=== PATIENT | female | born 1955 ===

== ENCOUNTER 2023-09-13 19:13 | Outpatient (CLI) | payer SELFPAY | END 2023-09-13 23:59 | disposition EMS.NT | LOC: EMS 19:13 | DX: S00.81XA Abrasion of other part of head, initial encounter (principal); W01.190A Fall on same level from slipping, tripping and stumbling with subsequent striking against furniture, initial encounter; Y93.89 Activity, other specified; Y92.009 Unspecified place in unspecified non-institutional (private) residence as the place of occurrence of the external cause ==

== ENCOUNTER 2024-05-12 14:00 | Inpatient (IN) ==
--- NOTE | 2024-05-12 14:20 | ED Physician Documentation ---
PD HPI CHEST PAIN Stated complaint Stated Complaint: SOA Chief complaint Chief Complaint: Resp Additional information Additional information: Patient with history of throat cancer had major reconstructive surgery with [facility] last year presents emergency department via EMS for chest pain, shortness of breath, increased work of breathing. Patient was seen here 05/09 and was diagnosed with influenza A since going home she has been having worsening symptoms and worsening shortness of breath worsening cough. Patient was prescribed Zithromax, Tessalon Perles, prednisone at last ER visit with no improvement in symptoms. Upon arrival via EMS to her house she was satting at 90% she was given a DuoNeb and route to emergency department to help with her increased work of breathing. Currently satting on 94% on room air. Meds/Allgy Home Medications Ambulatory Orders Medication Instructions Recorded Confirmed albuterol sulfate 90 mcg/actuation 1 inh inhalation QID 03/16/24 05/12/24 aerosol inhaler (Ventolin HFA) aspirin 81 mg tablet,delayed 81 mg PO QDAY 03/16/24 05/12/24 release (Adult Low Dose Aspirin) citalopram 40 mg tablet (Celexa) 20 mg PO QDAY 03/16/24 05/12/24 clonazepam 0.5 mg tablet (Klonopin) 0.5 mg PO QDAY 03/16/24 05/12/24 epinephrine 0.3 mg/0.3 mL 0.3 mg IM Q10M PRN anaphylaxis 03/16/24 05/12/24 injection, auto-injector (EpiPen 2-Rickie) hydrocodone 5 mg-acetaminophen 325 1 tab PO Q8H PRN pain 03/16/24 05/12/24 mg tablet latanoprost 0.005 % eye drops 1 drp ophthalmic (eye) QDAY 03/16/24 05/12/24 levothyroxine 75 mcg tablet 75 mcg PO QDAY 03/16/24 05/12/24 (Synthroid) lidocaine HCl 4 % topical cream 1 applic topical BID 03/16/24 05/12/24 (Aspercreme (lidocaine HCl)) methocarbamol 500 mg tablet 500 mg PO QID 03/16/24 05/12/24 ondansetron HCl 4 mg tablet 4 mg PO Q8H 03/16/24 05/12/24 polyethylene glycol 3350 17 17 g PO QDAY 03/16/24 05/12/24 gram/dose oral powder (Miralax) timolol 0.5 % eye drops 1 drp ophthalmic (eye) QDAY 03/16/24 05/12/24 azithromycin 250 mg tablet See Rx Instructions PO .COMPLEX #6 05/09/24 05/12/24 (Zithromax Z-Rickie) tabs benzonatate 200 mg capsule 200 mg PO TID PRN cough #18 caps 05/09/24 05/12/24 oseltamivir 75 mg capsule (Tamiflu) 75 mg PO BID 5 days #10 caps 05/09/24 05/12/24 prednisone 20 mg tablet 60 mg (3 x 20 mg) PO DAILY 3 days 05/09/24 05/12/24 #9 tabs Allergies Allergies Allergy/AdvReac Type Severity Reaction Status Date / Time iodine Allergy Hives Verified 05/12/24 14:41 tree nut Allergy Unknown Verified 05/12/24 14:41 PFSH Active Problems All Active Problems (Updated 05/12/24 @ 18:24 by Angie Flanagan) Dysphagia (Acute) Community acquired pneumonia (Acute) Respiratory failure with hypoxia (Acute) H/O colectomy (Acute) Pneumonia (Acute) Hypoxia (Acute) Asthma exacerbation (Acute) Bronchitis (Acute) Influenza A (Acute) Right foot pain (Acute) Right ankle pain (Acute) Social History Social History Smoking Status: Never smoker Relationship: Level: Independent Do you feel safe in your home environment?: Yes Suffered physical, verbal, emotional, or financial abuse?: No Substance Use: cannabis (any form) Exam Constitutional abnormal general appearance (disheveled), (chronically ill), (appears older than stated age) and (frail appearing), no apparent distress, abnormal body habitus (thin), no limitations and alert HENMT normocephalic Eyes PERRL Neck/C-Spine visual inspection normal and trachea midline Chest inspection of chest normal and palpation of chest normal Respiratory breath sounds equal bilaterally, abnormal respiratory effort, auscultation abnormal (diminished breath sound) and wheezing noted (scattered wheezes) ronchi Cardiovascular normal heart rate noted and regular rhythm noted Gastrointestinal abdomen normal to inspection Genitourinary no CVA tenderness Extremities normal to inspection and normal to palpation Skin skin color normal and no rash Results Vitals Vitals: Vital Signs - 24 hr 05/12/24 14:13 05/12/24 15:02 05/12/24 15:45 Temperature 36.6 C Temperature Source Temporal Artery Scan Pulse Rate 65 Respiratory Rate 22 Blood Pressure 154/92 H O2 Saturation 95 O2 Source Room air Pain Intensity 3 7 2 05/12/24 16:16 Temperature Temperature Source Pulse Rate 66 Respiratory Rate 14 Blood Pressure 145/90 H O2 Saturation 95 O2 Source Room air Pain Intensity 3 Oxygen O2 Source Room air EKG (time done) 1424: EKG releavant findings:: EKG personally interpreted by author of this note. Relevant findings are: Rate: Rate (enter#) (64) Rhythm: NSR [place]: Normal Intervals: Normal [place] QRS: QRS normal and Other (L atrial enlargement) Ischemia: Normal ST segments Computer interpretation: Agree with computer Labs Labs: Laboratory Tests 05/12/24 14:25 WBC 8.1 RBC 3.83 L Hgb 11.5 L Hct 34.9 L MCV 91.1 MCH 30.0 MCHC 33.0 RDW 13.9 Plt Count 380 MPV 9.0 Neut # (Auto) 5.6 Lymph # (Auto) 1.7 [place] # (Auto) 0.7 Eos # (Auto) 0.0 Baso # (Auto) 0.0 Absolute Nucleated RBC 0.00 Nucleated RBC % 0.0 Sodium 139 Potassium 3.5 Chloride 106 Carbon Dioxide 26 Anion Gap 7.0 BUN 11 Creatinine 0.6 Estimated GFR (MDRD) 99 Glucose 98 Calcium 8.5 Total Bilirubin 0.4 AST 35 ALT 33 Alkaline Phosphatase 44 Troponin I High Sens 3.7 Total Protein 6.1 L Albumin 3.8 Globulin 2.3 Albumin/Globulin Ratio 1.7 Rads (name of study) CT angio chest: Relevant Findings:: Final report received Interpretation: IMPRESSION: No pulmonary embolus. Scattered ground glass opacities can be seen, which are worst at the lung bases, which are consistent with the given clinical history of viral infiltrate. At both lung apices, there is consolidation with bronchiectasis. This has the appearance of a chronic process. Please relate with known patient history. PD Medical Decision Making ED course Complexity details: reviewed results, re-evaluated patient and d/w systems consultant (FIOR Chairez hospitalist) ED course: 68-year-old female with comorbidities of throat cancer requiring surgery at [facility] about a year ago. She comes in with increased shortness of breath and increased work of breathing with coughing. Bilateral lungs are quite rhonchorous. She is satting 90% on room air she received a DuoNeb treatment and route she is just recently prescribed azithromycin and steroids with little to no improvement of symptoms. CT angio chest was complete for further evaluation to rule out the possibility of a PE given her cancer history and recent immobilization due to influenza A and hypoxia she has no pulmonary embolus she appears to have scattered ground glass opacities worse at the lung bases. At both lung apices there is consolidation with bronchiectasis could be chronic finding. Labs are complete for further evaluation and she has no leukocytosis no significant anemia no electrolyte abnormalities or findings. We attempted to ambulate patient and she desatted to 88/87% with ambulation on room air. Because of these findings patient would benefit from hospitalization overnight for further evaluation workup and pulmonary toileting. She was given a gram of Rocephin here in the emergency department to help with possible influenza A pneumonia given that she has had the symptoms now for about a week and a half. At this point in time patient is agreeable to admit I reach out to on-call hospitalist, FIOR Chairez, who has graciously agreed to admit the patient Discharge Plan Discharge Patient Disposition: ED Place in Observation Condition: Stable Clinical Impression: Hypoxia, Pneumonia, Influenza A Interventions: ED Admission Assessment Last Done: 05/12/24 18:25
[2024-05-12] MEDS: DEXAMETHASONE 10 MG/ML VIAL PO STA (14:35)
[2024-05-12] MEDS: ONDANSETRON 4 MG/2 ML VIAL IVP STA (14:35)
[2024-05-12] MEDS: diphenhydrAMINE 25 MG CAPSULE PO STA (14:35)
[2024-05-12] MEDS: CHERRY SYRUP 10 ML UDC PO ONE ×2 (14:35→18:35)
[2024-05-12 14:40] LABS: BASOPHILS % (AUTO) 0.1 %; EOSINOPHILS % (AUTO) 0.1 %; HCT - HEMATOCRIT 34.9 % (37.0-47.0); HGB - HEMOGLOBIN 11.5 g/dL (12.0-16.0); LYMPHOCYTES # (AUTO) 1.7 10^3/uL (1.5-3.5); MEAN CORPUSCULAR VOLUME 91.1 fL (81.0-99.0); MONOCYTES # (AUTO) 0.7 10^3/uL (0.0-1.0); MONOCYTES % (AUTO) 9.1 %; NEUTROPHILS # (AUTO) 5.6 10^3/uL (1.5-6.6); NEUTROPHILS % (AUTO) 69.5 %; PLT - PLATELET COUNT 380 10^3/uL (130-450); RED BLOOD COUNT 3.83 10^6/uL (4.20-5.40); RED CELL DISTRIBUTION WIDTH 13.9 % (12.0-15.0); WHITE BLOOD COUNT 8.1 x10^3/uL (4.8-10.8)
[2024-05-12 14:49] LABS: ALBUMIN 3.8 g/dL (3.2-5.5); ALBUMIN/GLOBULIN RATIO 1.7 (1.0-2.2); BILIRUBIN,TOTAL 0.4 mg/dL (0.2-1.0); CALCIUM 8.5 mg/dL (8.5-10.3); CREATININE 0.6 mg/dL (0.6-1.3); POTASSIUM 3.5 mmol/L (3.5-4.5); TOTAL PROTEIN 6.1 g/dL (6.4-8.9)
[2024-05-12] MEDS: KETOROLAC 30 MG/ML VIAL IVP STA (15:02)
[2024-05-12] MEDS ORDERED: iohexoL-300 100 ML VIAL ONE (15:19)
--- NOTE | 2024-05-12 16:23 | CT Report ---
PROCEDURE: CT Angio Chest INDICATIONS: hypoxic, hx cancer, flu A, CP CONTRAST: omni 300, 80 TECHNIQUE: After the administration of intravenous contrast, 2 mm axial images were acquired from the pulmonary apices to the posterior costophrenic angles during the arterial phase. In addition, 1 mm lung kernel and 5 mm soft tissue kernel reconstructions were performed. 3-dimensional coronal oblique maximum int ensity projection (MIP) reformats, 8 mm axial MIP, and 5 mm coronal and sagittal MPR reformats were t hen performed through the thorax. For radiation dose reduction, the following was used: automated exp osure control, adjustment of mA and/or kV according to patient size. The patient was premedicated for this study. No immediate contrast reaction was experienced. COMPARISON: Correlation is made with chest radiograph, 05/09/2024 FINDINGS: Image quality: There is streak artifact seen through the level of the shoulders. Large vessels: No filling defects within the opacified pulmonary arteries, accounting for motion and contrast timing. No evidence of acute aortic syndrome or aortic aneurysm. Lungs and pleura: At both lung apices, consolidation with bronchiectasis can be seen. Scattered groun d glass opacities can be seen throughout the lungs, although worst at the lung bases. No pneumothorax or pleural effusions can be seen. Mediastinum: Heart size is normal. No pericardial effusion. No large vessel abnormality. No mediastin al adenopathy by size criteria. Chest wall and lower neck: Thyroid is unremarkable. No axillary or supraclavicular adenopathy by size . Bones: No aggressive osseous abnormality. Sternotomy changes are noted. Upper Abdomen: Left upper quadrant postoperative clips are seen. Diverticulosis can be seen, without mor findings of active diverticulitis. The visualized portions of the upper abdominal structures ar e otherwise within normal limits. IMPRESSION: No pulmonary embolus. Scattered ground glass opacities can be seen, which are worst at the lung bases, which are consistent with the given clinical history of viral infiltrate. At both lung apices, there is consolidation with bronchiectasis. This has the appearance of a chronic process. Please relate with known patient history. Additional findings: Sternotomy Left upper quadrant clips Diverticulosis can be seen, without mor findings of active diverticulitis. Reviewed by: Jonny Horvath MD on 05/12/2024 3:22 PM [facility] Approved by: Jonny Horvath MD on 05/12/2024 3:22 PM [facility] Station ID: [id number]
[2024-05-12] MEDS: iohexoL-300 100 ML VIAL IVP ONE (17:04)
[2024-05-12] MEDS: cefTRIAXone 1 GM in SODIUM CHLORIDE 0.9% MINIBAG 100 ML IV STA (17:30)
[2024-05-12] MEDS ORDERED: cefTRIAXone 1 GM VIAL ONE (17:33)
[2024-05-12] MEDS ORDERED: IBUPROFEN 600 MG TABLET PO PRN (18:06)
[2024-05-12] MEDS ORDERED: SODIUM CHLORIDE FLUSH 0.9% 10 ML SYRINGE IVP PRN (18:06)
--- NOTE | 2024-05-12 18:10 | HISTORY & PHYSICAL EXAMINATION ---
Chief Complaint Chief Complaint Chief Complaint: Shortness of breath History of Present Illness History Obtained From Records Reviewed: emergency department History of Present Illness HPI Comment/Other: Patient is a 68 year female with significant history of MEN 2a, throat cancer, thyroidectomy, punctured esophagus, neck reconstruction, colectomy that presents for shortness of breath. Patient reports malaise, lack of appetite, nausea, body aches, headaches, dysphagia, cough, shortness of breath with exertion for one week. Denies diarrhea, fever, chills, abdominal pain. She went to the ER last week and was prescribed prednisone and azithromycin with no improvement. Due to her medical history, she requires thickened liquids (consistency: mildly thin) , her dysphagia has been worse for the past week and she has been coughing up liquids. Patient denies smoking history, denies daily drinking, she lives with her boyfriend. Her PCP is Dr. An at [facility] Home Medications Ambulatory Orders Medication Instructions Recorded Confirmed albuterol sulfate 90 mcg/actuation 1 inh inhalation QID 03/16/24 05/12/24 aerosol inhaler (Ventolin HFA) aspirin 81 mg tablet,delayed 81 mg PO QDAY 03/16/24 05/12/24 release (Adult Low Dose Aspirin) citalopram 40 mg tablet (Celexa) 20 mg PO QDAY 03/16/24 05/12/24 clonazepam 0.5 mg tablet (Klonopin) 0.5 mg PO QDAY 03/16/24 05/12/24 epinephrine 0.3 mg/0.3 mL 0.3 mg IM Q10M PRN anaphylaxis 03/16/24 05/12/24 injection, auto-injector (EpiPen 2-Rickie) hydrocodone 5 mg-acetaminophen 325 1 tab PO Q8H PRN pain 03/16/24 05/12/24 mg tablet latanoprost 0.005 % eye drops 1 drp ophthalmic (eye) QDAY 03/16/24 05/12/24 levothyroxine 75 mcg tablet 75 mcg PO QDAY 03/16/24 05/12/24 (Synthroid) lidocaine HCl 4 % topical cream 1 applic topical BID 03/16/24 05/12/24 (Aspercreme (lidocaine HCl)) methocarbamol 500 mg tablet 500 mg PO QID 12/27/24 02/22/25 ondansetron HCl 4 mg tablet 4 mg PO Q8H 03/16/24 05/12/24 polyethylene glycol 3350 17 17 g PO QDAY 03/16/24 05/12/24 gram/dose oral powder (Miralax) timolol 0.5 % eye drops 1 drp ophthalmic (eye) QDAY 03/16/24 05/12/24 azithromycin 250 mg tablet See Rx Instructions PO .COMPLEX #6 05/09/24 05/12/24 (Zithromax Z-Rickie) tabs benzonatate 200 mg capsule 200 mg PO TID PRN cough #18 caps 05/09/24 05/12/24 oseltamivir 75 mg capsule (Tamiflu) 75 mg PO BID 5 days #10 caps 05/09/24 05/12/24 prednisone 20 mg tablet 60 mg (3 x 20 mg) PO DAILY 3 days 05/09/24 05/12/24 #9 tabs Allergies Allergies Allergy/AdvReac Type Severity Reaction Status Date / Time iodine Allergy Hives Verified 05/12/24 14:41 tree nut Allergy Unknown Verified 05/12/24 14:41 PFSH Active Problems All Active Problems (Updated 05/12/24 @ 18:24 by Angie Flanagan) Dysphagia (Acute) Community acquired pneumonia (Acute) Respiratory failure with hypoxia (Acute) H/O colectomy (Acute) Pneumonia (Acute) Hypoxia (Acute) Asthma exacerbation (Acute) Bronchitis (Acute) Influenza A (Acute) Right foot pain (Acute) Right ankle pain (Acute) Social History Social History Smoking Status: Never smoker Relationship: Level: Independent Do you feel safe in your home environment?: Yes Suffered physical, verbal, emotional, or financial abuse?: No Substance Use: cannabis (any form) POLST Patient has POLST: Yes POLST Status: Miguel Arrieta is contact Review of Systems Constitutional Reports: Fatigue, Malaise, Weakness and Poor appetite; Denies: Fever or Chills Ears, nose, mouth, and throat Reports: Difficulty swallowing Cardiovascular Reports: shortness of breath with exertion; Denies: chest pain, palpitations or edema Respiratory Reports: Shortness of breath, Cough and SOB with exertion Gastrointestinal Reports: Nausea, Vomiting and Difficulty swallowing; Denies: Abdominal pain or Diarrhea Musculoskeletal Reports: Muscle aches Neurological Reports: Headache and General weakness Endocrine Reports: Fatigue Exam Constitutional abnormal body habitus (cachectic) On room air HENMT normocephalic, head/scalp atraumatic and oral mucous membranes abnormal (dry) Eyes PERRL and conjunctivae normal Neck/C-Spine visual inspection normal Chest inspection of chest normal and palpation of chest normal Respiratory breath sounds equal bilaterally, normal respiratory effort, clear to auscultation bilaterally, no wheezes and no rales Cardiovascular normal heart rate noted Gastrointestinal abdomen normal to inspection, abdomen soft to palpation and nontender to palpation Extremities normal to inspection Neurology seed analyst II-XII intact, no movement abnormality noted, no focal motor deficit noted and no sensory deficits noted Psychiatry oriented x3, thought process normal, cooperative and affect normal Skin skin color abnormal (pale) Conclusion/Plan Problem List (1) Respiratory failure with hypoxia: Plan: Patient short of breath with exertion for the past week despite use of prednisone and albuterol inhaler, saturation 87% on room air when walking. Patient does not require oxygen right now, will continue to monitor oxygen. Likely secondary to flu A or possible community acquired bacterial pneumonia. Chest x-ray indicated ground glass infiltrates and bronchiectasis. Albuterol and atrovent ordered q4 PRN. (2) Influenza A: Plan: Patient reports shortness of breath, nausea, myalgias, malaise, lack of appetite, cough for past week. Patient tested flu a positive on 05/09/24 and was prescribed tamiflu, tessalon pearls, azithromycin, and prednisone. These have not improved symptoms. Will continue to give fluids, dexamethasone 6mg daily, tylenol, and zofran PRN. (3) Community acquired pneumonia: Plan: Patient has shortness of breath and cough. Chest x-ray indicates ground glass opacities and bronchiectasis. WBCs within normal limits. Tested flu a positive 3 days ago. Patient is being empircally treated with azithromycin and rocephin. Ordered dexamethasone, fluids, tylenol, zofran. Recheck CBC and BMP tomorrow. (4) Dysphagia: Plan: Patient has dysphagia associated with history of MEN IIa and neck reconstruction. She specifically has dysphagia to liquids and requires nectar thick liquids. Dysphagia has worsened with cough this past week. Patient placed on minced and moist diet, mildly thick liquids. Plan Patient is a full code, her boyfriend Miguel Arrieta is her decision maker in case of adverse event Lab Results Lab results reviewed: Yes 05/12/24 14:25 05/12/24 14:25 Diagnostic Imaging Results Diagnostic Imaging Results: positive Final report reviewed
[2024-05-12] MEDS: clonazePAM 0.5 MG TABLET PO STA (18:39)
[2024-05-12] MEDS: CITALOPRAM HYDROBROMIDE 20 MG TABLET PO SCH (18:39)
[2024-05-12] MEDS: HYDROcod/ACETAM 5/325 MG TABLET PO PRN (18:53)
[2024-05-12] MEDS: IPRATROPIUM/ALBUTEROL 3 ML NEB INH PRN (19:27)
[2024-05-12] MEDS: LATANOPROST 0.005% OPHTH DROPS EACHEYE SCH (20:39)
[2024-05-12] MEDS: HEPARIN 5,000 UNIT/ML VIAL SUBQ SCH (20:39)
[2024-05-12] MEDS: guaiFENesin/CODEINE 5 ML UDC PO PRN (22:13)
[2024-05-12] MEDS: FLUTICASONE NASAL SPRAY NAS SCH (22:13)
[2024-05-13] MEDS: SODIUM CHLORIDE FLUSH 0.9% 10 ML SYRINGE IVP SCH (00:17)
[2024-05-13] MEDS: clonazePAM 0.5 MG TABLET PO PRN (05:03)
[2024-05-13 05:40] LABS: BASOPHILS % (AUTO) 0.1 %; EOSINOPHILS % (AUTO) 0.1 %; HCT - HEMATOCRIT 37.7 % (37.0-47.0); HGB - HEMOGLOBIN 12.5 g/dL (12.0-16.0); LYMPHOCYTES % (AUTO) 11.3 %; MEAN CORPUSCULAR HEMOGLOBIN 29.8 pg (27.0-31.0); MEAN CORPUSCULAR HGB CONC 33.2 g/dL (32.0-36.0); MEAN CORPUSCULAR VOLUME 89.8 fL (81.0-99.0); MEAN PLATELET VOLUME 8.8 fL (7.9-10.8); MONOCYTES # (AUTO) 0.5 10^3/uL (0.0-1.0); MONOCYTES % (AUTO) 5.2 %; NEUTROPHILS # (AUTO) 7.2 10^3/uL (1.5-6.6); NEUTROPHILS % (AUTO) 83.1 %; PLT - PLATELET COUNT 460 10^3/uL (130-450); RED CELL DISTRIBUTION WIDTH 13.6 % (12.0-15.0); WHITE BLOOD COUNT 8.7 x10^3/uL (4.8-10.8)
[2024-05-13 05:57] LABS: CALCIUM 8.9 mg/dL (8.5-10.3); CREATININE 0.6 mg/dL (0.6-1.3); POTASSIUM 3.5 mmol/L (3.5-4.5)
[2024-05-13] MEDS: LEVOTHYROXINE 75 MCG TABLET PO SCH (06:18)
[2024-05-13] MEDS ORDERED: LEVOTHYROXINE 75 MCG TABLET PO SCH (07:00)
[2024-05-13] MEDS: hydrALAZINE INJ 20 MG/ML VIAL IVP PRN (07:43)
[2024-05-13] MEDS: ASPIRIN CHEW 81 MG TABLET PO SCH (08:35)
[2024-05-13] MEDS: cefTRIAXone 1 GM VIAL IVP SCH (08:37)
[2024-05-13] MEDS: AZITHROMYCIN INJ 500 MG in SODIUM CHLORIDE 0.9% 250 ML IV SCH (08:38)
[2024-05-13] MEDS: polyethylene glycoL 3350 17 GM PACKET PO SCH (08:51)
[2024-05-13] MEDS: SENNA 8.6 MG TABLET PO SCH (08:52)
[2024-05-13] MEDS: DOCUSATE SODIUM 250 MG CAPSULE PO SCH (08:52)
[2024-05-13] MEDS: DEXAMETHASONE 10 MG/ML VIAL PO SCH (08:55)
[2024-05-13] MEDS: dexAMETHasone 4 MG TABLET PO SCH (08:57)
[2024-05-13] MEDS: ONDANSETRON ODT 4 MG TABLET TL PRN (09:22)
[2024-05-13] MEDS: TIMOLOL 0.5% OPHTH DROPS EACHEYE SCH (09:23)
[2024-05-13] MEDS: LORazepam 1 MG TABLET PO SCH (09:41)
--- NOTE | 2024-05-13 12:13 | Discharge Summary ---
"Discharge Summary Admit Date: 05/12/24 Discharge Date: 05/13/24 Discharging Provider: Lisa Silvestre PA-C Primary Care Provider: Dr. An Code Status: Attempt Resuscitation DIAGNOSES Discharge Diagnoses with Status of Each Condition: (1) Respiratory failure with hypoxia - resolved (2) Influenza A - patient sx improved, stable (3) Community acquired pneumonia - sx improved, stable (4) Dysphagia - chronic, stable HPI History of Present Illness: Patient is a 68 year female with significant history of MEN 2a, throat cancer, thyroidectomy, punctured esophagus, neck reconstruction, colectomy that presents for shortness of breath. Patient reports malaise, lack of appetite, nausea, body aches, headaches, dysphagia, cough, shortness of breath with exertion for one week. Denies diarrhea, fever, chills, abdominal pain. She went to the ER last week and was prescribed prednisone and azithromycin with no improvement. Due to her medical history, she requires thickened liquids (consistency: mildly thin) , her dysphagia has been worse for the past week and she has been coughing up liquids. Patient denies smoking history, denies daily drinking, she lives with her boyfriend. Her PCP is Dr. An at [facility] | PROCEDURES Consultations: None Procedures: Chest/thorax CTA - Scattered ground glass opacities, at apices consolidation with bronchiectasis HOSPITAL COURSE Hospital Course: Patient is a 68 year old female s/p neck reconstruction due to esophageal perforation during thyroidectomy that presented to ER for hypoxic respiratory failure secondary to flu A and community acquired pneumonia. #Respiratory failure with hypoxia: -Patient tested flu A positive 05/09/24 -prescribed prednisone, azithromycin, prednisone, tamiflu, tessalon by ER 05/09/24 -admitted 05/12/24 due to respiratory failure -CT indicated ground glass opacities, bronchiectasis with consolidation -given rocephin course inpatient -patient now 100% O2 on room air while walking -received duoneb treatment by RT -discharging on prednisone, augmentin #Dysphagia: -worsened with flu a, now back to baseline -managed by PCP #Seborrheic dermatitis -suspected based on scalp presentation and pruritis rx'ed ketoconazole Recommended patient mix ketoconazole and t-gel shampoo and use 3x per week. use clobetasol solution on problem areas of scalp after shower for one week, stop for one week, restart ALLERGIES Allergies Allergy/AdvReac Type Severity Reaction Status Date / Time iodine Allergy Hives Verified 05/12/24 14:41 tree nut Allergy Unknown Verified 05/12/24 14:41 MEDICATIONS Ambulatory Orders Medication Instructions Recorded Confirmed albuterol sulfate 90 mcg/actuation 1 inh inhalation QID 03/16/24 05/12/24 aerosol inhaler (Ventolin HFA) aspirin 81 mg tablet,delayed 81 mg PO QDAY 03/16/24 05/12/24 release (Adult Low Dose Aspirin) citalopram 40 mg tablet (Celexa) 20 mg PO QDAY 03/16/24 05/12/24 clonazepam 0.5 mg tablet (Klonopin) 0.5 mg PO QDAY 03/16/24 05/12/24 epinephrine 0.3 mg/0.3 mL 0.3 mg IM Q10M PRN anaphylaxis 03/16/24 05/12/24 injection, auto-injector (EpiPen 2-Rickie) hydrocodone 5 mg-acetaminophen 325 1 tab PO Q8H PRN pain 03/16/24 05/12/24 mg tablet latanoprost 0.005 % eye drops 1 drp ophthalmic (eye) QDAY 03/16/24 05/12/24 levothyroxine 75 mcg tablet 75 mcg PO QDAY 03/16/24 05/12/24 (Synthroid) timolol 0.5 % eye drops 1 drp ophthalmic (eye) QDAY 03/16/24 05/13/24 oseltamivir 75 mg capsule (Tamiflu) 75 mg PO BID 5 days #10 caps 05/09/24 05/12/24 amoxicillin 875 mg-potassium 1 tab PO BID #8 tabs 05/13/24 clavulanate 125 mg tablet codeine 10 mg-guaifenesin 100 mg/5 5 ml PO Q6HR PRN Cough #120 mL 05/13/24 mL oral liquid dexamethasone 2 mg tablet 6 mg (3 x 2 mg) PO DAILY #12 tabs 05/13/24 PHYSICAL EXAM AT DISCHARGE General Appearance: positive No acute distress, Alert and Anxious Eyes Bilateral: positive Normal inspection, PERRL and Conjunctivae nml Neck: positive Nml inspection Respiratory: positive Chest non-tender, No respiratory distress and Breath sounds nml; negative Wheezes, Rales or Rhonchi Cardiovascular: positive Regular rate & rhythm, No murmur and No gallop Skin: positive Color nml, Warm and Dry Extremities: positive Non-tender Neurologic/Psychiatric: positive Oriented x3 and CN's nml (2-12) LABS 05/13/24 05:30 05/13/24 05:30 DIAGNOSTIC IMAGING Diagnostic Imaging Results: Final report reviewed SEPSIS Current Stage of Sepsis: Ruled out Discharge Plan Discharge Patient Disposition: 06 Home Health Service Condition: Stable Prescriptions: New amoxicillin-pot clavulanate 875-125 mg tablet 1 tab PO BID Qty: 8 0RF dexamethasone 2 mg tablet 6 mg PO DAILY Qty: 12 0RF codeine-guaifenesin 10-100 mg/5 mL Liquid 5 ml PO Q6HR PRN (Reason: Cough) Qty: 120 0RF clobetasol 0.05 % solution 1 applic topical BID 7 Days Qty: 50 0RF Continued levothyroxine [Synthroid] 75 mcg tablet 75 mcg PO QDAY citalopram [Celexa] 40 mg tablet 20 mg PO QDAY clonazepam [Klonopin] 0.5 mg tablet 0.5 mg PO QDAY aspirin [Adult Low Dose Aspirin] 81 mg tablet,delayed release (DR/EC) 81 mg PO QDAY hydrocodone-acetaminophen 5-325 mg tablet 1 tab PO Q8H PRN (Reason: pain) epinephrine [EpiPen 2-Rickie] 0.3 mg/0.3 mL auto-injector 0.3 mg IM Q10M PRN (Reason: anaphylaxis) Rx Instructions: for 2 doses latanoprost 0.005 % drops 1 drp ophthalmic (eye) QDAY timolol 0.5 % drops 1 drp ophthalmic (eye) QDAY albuterol sulfate [Ventolin HFA] 90 mcg/actuation HFA aerosol inhaler 1 inh inhalation QID Discontinued oseltamivir [Tamiflu] 75 mg capsule 75 mg PO BID 5 Days Qty: 10 0RF Diet: Regular Health Concerns: \\you are a 68-year-old female with a past medical history of asthma who got an influenza A infection. You were trying to do well at home and follow instructions following your emergency department visit but it seems that you got sicker and had to return to the emergency department. At that time we noted that your oxygen was low when you are walking. Your oxygen was fine at rest. Because your oxygen requirements are improved after being on IV antibiotics and steroids overnight, you no longer require hospitalization. You are still weak and you are still tired. You need to go home and rest. I have sent in several new medications 1 is Augmentin that is an antibiotic that you can start tomorrow. You have gotten enough antibiotic coverage for the remainder of today. You do not need to finish your Tamiflu as you have had enough of that. You have also had enough azithromycin and do not need any more of that. I am sending you home on additional days of dexamethasone. This is to relieve the inflammation in your lungs from the infection. I am also sending you home with a cough suppressant. I would recommend that you mainly take this at night so that you can rest. With regards to how to take the dexamethasone, I recommend that you take this in the morning with food. Taking it in the afternoon or evening can cause you to be awake at night. With regards to the irritation of your scalp, I have several recommendations. You need to wash with medicated shampoo at least twice a week. I recommend [id number] solution of the ketoconazole shampoo that your radiology physician assistant has previously prescribed mixed with either T-Gel or T-yasmany shampoo. Both of these help inhibit the rapids turnover of skin cells that you have which is causing the dermatitis and dandruff. Also to the itchy scaly spots apply the clobetasol solution twice a day. You should use this for 1 week on 1 week off. Hopefully this will help and you will stop being so uncomfortable. Care Plan Goals: Rest, drink plenty of fluids and recover from this infection. It will take you several weeks We are sending home health for home health aide and physical therapy. Print Language: Haitian Stand Alone Forms: PCP List"
--- NOTE | 2024-05-13 12:15 | PHARMACY PROGRESS NOTE ---
Best Possible Medication History Admit Date and Time: 05/12/24 1737 Home Medications Medication Instructions Recorded Confirmed Type albuterol sulfate 90 mcg/actuation 1 inh inhalation QID 03/16/24 05/12/24 History aerosol inhaler (Ventolin HFA) aspirin 81 mg tablet,delayed 81 mg PO QDAY 03/16/24 05/12/24 History release (Adult Low Dose Aspirin) citalopram 40 mg tablet (Celexa) 20 mg PO QDAY 03/16/24 05/12/24 History clonazepam 0.5 mg tablet (Klonopin) 0.5 mg PO QDAY 03/16/24 05/12/24 History epinephrine 0.3 mg/0.3 mL 0.3 mg IM Q10M PRN anaphylaxis 03/16/24 05/12/24 History injection, auto-injector (EpiPen 2-Rickie) hydrocodone 5 mg-acetaminophen 325 1 tab PO Q8H PRN pain 03/16/24 05/12/24 History mg tablet latanoprost 0.005 % eye drops 1 drp ophthalmic (eye) QDAY 03/16/24 05/12/24 History levothyroxine 75 mcg tablet 75 mcg PO QDAY 03/16/24 05/12/24 History (Synthroid) timolol 0.5 % eye drops 1 drp ophthalmic (eye) QDAY 03/16/24 05/13/24 History oseltamivir 75 mg capsule (Tamiflu) 75 mg PO BID 5 days #10 caps 05/09/24 05/12/24 Rx Processed by: Pharmacy Medications reviewed in ED?: No Medication History completed: Yes Patient Interview: Completed Secondary Source(s): Insurance records [facility] Statement: RN interview with patient. [place] insurance records reviewed with T. As the person ultimately responsible for medication therapy, providers are able to order a medication from an existing home medication list in [facility] via the "Reconcile Routine" prior to Confirmation of that medication by student support advisor. Such practice is discouraged except when the physician, in their clinical judgment, deems that a medical need exists for a medication without regard to previous use.
[2024-05-13] MEDS: ACETAMINOPHEN 325 MG TABLET PO PRN (13:37)
[2024-05-13] MEDS: polyethylene glycoL 3350 17 GM PACKET PO PRN (17:14)
--- NOTE | 2024-05-13 17:23 | PROVIDER PROGRESS NOTE ---
Subjective Prog Note Date Prog Note Date: 05/13/24 Subjective Subjective: Elevated blood pressures overnight. When I came in to see the patient this morning I checked her blood pressure and it was 161/86 with a heart rate of 87. She continues to feel weak. She does not have increasing oxygen requirements overnight. Current Medications Current Medications Current Medications: Current Medications Generic Name Dose Route Start Last Admin Trade Name Rosemarie PRN Reason Stop Dose Admin Acetaminophen 650 mg 05/12/24 18:06 05/13/24 13:37 Acetaminophen 325 Mg Tablet PO 650 mg Q4HR PRN Administration Pain 1 to 4, or Fever Hydrocodone Bitart/Acetaminophen 1 tab 05/12/24 18:21 05/13/24 16:49 Hydrocod/Acetam 5/325 Mg Tablet PO 1 tab Q4HR PRN Administration Moderate Pain (Level 4-6) Albuterol/Ipratropium 3 ml 05/12/24 18:21 05/12/24 19:27 Ipratropium/Albuterol 3 Ml Neb INH 3 ml RTQID PRN Administration Shortness of Air/Wheezing Aspirin 81 mg 05/13/24 09:00 05/13/24 08:35 Aspirin Chew 81 Mg Tablet PO 81 mg DAILY VINICIO Administration Ceftriaxone Sodium 1 gm 05/13/24 09:00 05/13/24 08:37 Ceftriaxone 1 Gm Vial IVP 05/16/24 09:01 1 gm DAILY VINICIO Administration Citalopram Hydrobromide 20 mg 05/12/24 18:06 05/13/24 08:34 Citalopram Hydrobromide 20 Mg Tablet PO 20 mg DAILY VINICIO Administration Clonazepam 0.5 mg 05/12/24 18:21 05/13/24 05:04 Clonazepam 0.5 Mg Tablet PO 0.5 mg BID PRN Administration Anxiety Dexamethasone 6 mg 05/14/24 09:00 Dexamethasone 4 Mg Tablet PO 05/17/24 09:01 DAILY VINICIO Docusate Sodium 250 - 500 mg 05/13/24 09:00 05/13/24 08:52 Docusate Sodium 250 Mg Capsule PO 250 mg DAILY VINICIO Administration Fluticasone Propionate 1 sprays 05/12/24 21:55 05/13/24 08:33 Fluticasone Nasal [place] ZAC 1 spray DAILY VINICIO Administration Guaifenesin/Codeine Phosphate 5 ml 05/12/24 21:54 05/12/24 22:13 Guaifenesin/Codeine 5 Ml Udc PO 5 ml Q6HR PRN Administration Cough Heparin Sodium (Porcine) 5,000 unit 05/12/24 21:00 05/13/24 09:23 Heparin 5,000 Unit/Ml Vial SUBQ 5,000 unit BID VINICIO Administration Hydralazine HCl 10 mg 05/13/24 06:58 05/13/24 13:27 Hydralazine Inj 20 Mg/Ml Vial IVP 10 mg Q4H PRN Administration Blood Pressure Azithromycin 500 mg/ Sodium 250 mls @ 250 mls/hr 05/13/24 09:00 05/13/24 10:11 Chloride IV 05/14/24 09:59 Infused DAILY VINICIO Infusion Ibuprofen 600 mg 05/12/24 18:06 Ibuprofen 600 Mg Tablet PO Q6HR PRN Pain 1 to 4 Latanoprost 1 drops 05/12/24 21:00 05/12/24 20:39 Latanoprost 0.005% Ophth Drops EACHEYE 1 drops HS VINCIIO Administration Levothyroxine Sodium 75 mcg 05/13/24 07:00 05/13/24 06:18 Levothyroxine 75 Mcg Tablet PO 75 mcg QDAC VINICIO Administration Lisinopril 10 mg 05/14/24 09:00 Lisinopril 5 Mg Tablet PO DAILY VINICIO Melatonin 3 mg 05/13/24 21:00 Melatonin 3 Mg Tablet PO QPM VINICIO Ondansetron HCl 4 mg 05/12/24 18:06 05/13/24 09:22 Ondansetron Odt 4 Mg Tablet TL 4 mg Q6HR PRN Administration Nausea / Vomiting Polyethylene Glycol 17 gm 05/13/24 09:00 05/13/24 08:51 Polyethylene Glycol 3350 17 Gm Packet PO 17 gm DAILY VINICIO Administration Polyethylene Glycol 17 gm 05/13/24 17:13 05/13/24 17:14 Polyethylene Glycol 3350 17 Gm Packet PO 17 gm DAILY PRN Administration Bowel Protocol Senna 8.6 - 17.2 mg 05/13/24 09:00 05/13/24 08:52 Senna 8.6 Mg Tablet PO 8.6 mg DAILY VINICIO Administration Sodium Chloride 10 ml 05/12/24 18:06 Sodium Chloride Flush 0.9% 10 Ml Syringe IVP PRN PRN NEEDED PER PROVIDER ORDERS Sodium Chloride 10 ml 05/13/24 01:00 05/13/24 08:34 Sodium Chloride Flush 0.9% 10 Ml Syringe IVP 10 ml 0100,0900,1700 VINICIO Administration Timolol Maleate 1 drops 05/13/24 09:00 05/13/24 09:23 Timolol 0.5% Ophth Drops EACHEYE 1 drops DAILY VINICIO Administration Objective Vital Signs/Intake & Output Reviewed Vital Signs: Yes Vital Signs: Vital Signs x48h Temp Pulse Resp BP BP Pulse Ox 05/13/24 16:24 86 159/86 H 05/13/24 16:15 209/117 H 05/13/24 16:10 36.7 C 98 20 209/105 H 96 05/13/24 13:40 160/85 H 05/13/24 13:27 174/89 H 05/13/24 13:17 36.6 C 80 18 174/89 H 98 Intake & Output: Intake & Output 05/10/24 05/11/24 05/12/24 05/13/24 23:59 23:59 23:59 23:59 Intake Total 350 / 350 606 / 606 Balance 350 / 350 606 / 606 Weight (kg) 46.5 kg Objective General Appearance: positive Mild distress Eyes Bilateral: positive Conjunctivae nml ENT: positive ENT inspection nml Neck: positive Nml inspection Respiratory: positive Chest non-tender, No respiratory distress and Breath sounds nml Cardiovascular: positive Regular rate & rhythm Abdomen: positive No distention Skin: positive Color nml and No rash Extremities: positive Non-tender and No pedal edema Lab Results 05/13/24 05:30 05/13/24 05:30 Other Labs: Lab Results x24hrs 05/13/24 Range/Units 05:30 WBC 8.7 (4.8-10.8) x10^3/uL RBC 4.20 (4.20-5.40) 10^6/uL Hgb 12.5 (12.0-16.0) g/dL Hct 37.7 (37.0-47.0) % MCV 89.8 (81.0-99.0) fL MCH 29.8 (27.0-31.0) pg MCHC 33.2 (32.0-36.0) g/dL RDW 13.6 (12.0-15.0) % Plt Count 460 H (130-450) 10^3/uL MPV 8.8 (7.9-10.8) fL Neut # (Auto) 7.2 H (1.5-6.6) 10^3/uL Lymph # (Auto) 1.0 L (1.5-3.5) 10^3/uL [place] # (Auto) 0.5 (0.0-1.0) 10^3/uL Eos # (Auto) 0.0 (0.0-0.7) 10^3/uL Baso # (Auto) 0.0 (0.0-0.1) 10^3/uL Absolute Nucleated RBC 0.00 x10^3/uL Nucleated RBC % 0.0 /100WBC Sodium 138 (135-145) mmol/L Potassium 3.5 (3.5-4.5) mmol/L Chloride 103 (101-111) mmol/L Carbon Dioxide 25 (21-32) mmol/L Anion Gap 10.0 (6-13) BUN 8 (6-20) mg/dL Creatinine 0.6 (0.6-1.3) mg/dL Estimated GFR (MDRD) 99 (>89) Glucose 179 H (74-104) mg/dL Calcium 8.9 (8.5-10.3) mg/dL Sepsis Event Note (H) Evaluation Current Stage of Sepsis: Ruled out Assessment/Plan Problem List (1) Respiratory failure with hypoxia: Impression: Resolved today. She has passed an oxygen desaturation test. She is 100% with ambulation. She has responded well overnight to treatment with steroids and IV antibiotics. She is asking for respiratory treatment this morning did not get any overnight. (2) Influenza A: Impression: Acute hypoxic respiratory failure secondary to this influenza A infection she received Tamiflu as an outpatient. We are treating with anti-inflammatories Tylenol and Zofran as needed. (3) Community acquired pneumonia: Impression: Groundglass opacities on CT of the chest. Indicative of inflammation there is no dense consolidation. Her white blood cell count is within normal limits I am treating her for community-acquired pneumonia with azithromycin x 3 days and Rocephin x 5 days. She is day 2 through azithromycin although she has received time in the outpatient environment and she is day 2 of 5 Rocephin. (4) Dysphagia: Impression: Chronic dysphagia with a history of multiple endocrine neoplasia type II OA and status post neck reconstruction after an esophageal perforation. She has chronic dysphagia and drinks thickened liquids. She is currently tolerating her diet. (5) Hypertension: Impression: The plan was to discharge this patient to home given her resolution of her need for oxygen I was going to send her home with completion of antibiotics and steroid therapy as well as treatment of her cough. She had elevated blood pressures overnight and was given hydralazine as needed. Her blood pressures did normalize this morning. She voiced concern about going home and stated she did not want to. She got up and went to the bathroom and said she did not feel well nurse checked her blood pressure and it was over 200. I have started her on lisinopril here in the hospital we will continue hydralazine as needed. She cannot discharge home because she is unable to stand under assisted without becoming faint. At this time her blood pressure was very elevated.Selected Entries 05/13/24 13:17 05/13/24 13:27 05/13/24 13:40 Blood Pressure 174/89 H Blood Pressure [Right Brachial artery] 174/89 H 160/85 H 05/13/24 16:10 05/13/24 16:15 05/13/24 16:24 Blood Pressure 209/117 H Blood Pressure [Right Brachial artery] 209/105 H 159/86 H 05/13/24 20:42 Blood Pressure Blood Pressure [Right Brachial artery] 155/89 H (6) Seborrheic dermatitis: Impression: Ongoing and problematic for the patient. She states that her scalp is itchy and uncomfortable. She does indeed have scabbing and scaling in patches on her scalp. She has severe dandruff.She has been given ketoconazole shampoo in the outpatient environment. This is not working. I educated the patient regarding treatment of seborrheic dermatitis of the scalp. She will use [id number] T-Gel and T Randy shampoos mixed with her ketoconazole and I will prescribe her topical clobetasol solution for her scalp. She will follow-up with her system support administrator. I have spent 50 minutes in the care of this patient today. This includes time [id number], review and ordering of diagnostic imaging and laboratory studies.. Monitoring the patient's signs symptoms, evaluation of medication effectiveness and patient's response to treatment.
[2024-05-13] MEDS: MELATONIN 3 MG TABLET PO SCH (20:44)
[2024-05-14 05:12] LABS: BASOPHILS % (AUTO) 0.1 %; EOSINOPHILS % (AUTO) 0.1 %; HCT - HEMATOCRIT 42.6 % (37.0-47.0); HGB - HEMOGLOBIN 13.9 g/dL (12.0-16.0); LYMPHOCYTES % (AUTO) 17.9 %; MEAN CORPUSCULAR HEMOGLOBIN 29.8 pg (27.0-31.0); MEAN CORPUSCULAR HGB CONC 32.6 g/dL (32.0-36.0); MEAN CORPUSCULAR VOLUME 91.2 fL (81.0-99.0); MEAN PLATELET VOLUME 9.3 fL (7.9-10.8); MONOCYTES # (AUTO) 1.2 10^3/uL (0.0-1.0); MONOCYTES % (AUTO) 10.3 %; NEUTROPHILS % (AUTO) 71.1 %; PLT - PLATELET COUNT 432 10^3/uL (130-450); RED BLOOD COUNT 4.67 10^6/uL (4.20-5.40); WHITE BLOOD COUNT 11.3 x10^3/uL (4.8-10.8)
[2024-05-14 05:23] LABS: CALCIUM 8.9 mg/dL (8.5-10.3); CREATININE 0.5 mg/dL (0.6-1.3); POTASSIUM 3.6 mmol/L (3.5-4.5)
[2024-05-14] MEDS: dexAMETHasone 4 MG TABLET PO SCH (08:24)
[2024-05-14] MEDS: lisinopriL 5 MG TABLET PO SCH (08:28)
[2024-05-14] MEDS: MULTIVITAMIN W/MINERALS TABLET PO SCH (11:37)
[2024-05-14] MEDS ORDERED: iohexoL-300 100 ML VIAL ONE (12:11)
--- NOTE | 2024-05-14 16:13 | PROVIDER PROGRESS NOTE ---
Subjective Prog Note Date Prog Note Date: 05/14/24 Subjective Subjective: Still feeling weak. had trouble getting up to the bathroom today. unable to manage at home where she lives alone Current Medications Current Medications Current Medications: Current Medications Generic Name Dose Route Start Last Admin Trade Name Lambertoq PRN Reason Stop Dose Admin Acetaminophen 650 mg 05/12/24 18:06 05/13/24 13:37 Acetaminophen 325 Mg Tablet PO 650 mg Q4HR PRN Administration Pain 1 to 4, or Fever Hydrocodone Bitart/Acetaminophen 1 tab 05/12/24 18:21 05/14/24 14:52 Hydrocod/Acetam 5/325 Mg Tablet PO 1 tab Q4HR PRN Administration Moderate Pain (Level 4-6) Albuterol/Ipratropium 3 ml 05/12/24 18:21 05/14/24 07:12 Ipratropium/Albuterol 3 Ml Neb INH 3 ml RTQID PRN Administration Shortness of Air/Wheezing Aspirin 81 mg 05/13/24 09:00 05/14/24 08:23 Aspirin Chew 81 Mg Tablet PO 81 mg DAILY VINICIO Administration Ceftriaxone Sodium 1 gm 05/13/24 09:00 05/14/24 08:22 Ceftriaxone 1 Gm Vial IVP 05/16/24 09:01 1 gm DAILY VINICIO Administration Citalopram Hydrobromide 20 mg 05/12/24 18:06 05/14/24 08:24 Citalopram Hydrobromide 20 Mg Tablet PO 20 mg DAILY VINICIO Administration Clonazepam 0.5 mg 05/12/24 18:21 05/14/24 11:38 Clonazepam 0.5 Mg Tablet PO 0.5 mg BID PRN Administration Anxiety Dexamethasone 6 mg 05/14/24 09:00 05/14/24 08:24 Dexamethasone 4 Mg Tablet PO 05/17/24 09:01 6 mg DAILY VINICIO Administration Docusate Sodium 250 - 500 mg 05/13/24 09:00 05/14/24 08:28 Docusate Sodium 250 Mg Capsule PO Not Given DAILY VINICIO Fluticasone Propionate 1 sprays 05/12/24 21:55 05/14/24 08:22 Fluticasone Nasal Lipan ZAC 1 spray DAILY VINICIO Administration Guaifenesin/Codeine Phosphate 5 ml 05/12/24 21:54 05/12/24 22:13 Guaifenesin/Codeine 5 Ml Udc PO 5 ml Q6HR PRN Administration Cough Heparin Sodium (Porcine) 5,000 unit 05/12/24 21:00 05/14/24 08:47 Heparin 5,000 Unit/Ml Vial SUBQ 5,000 unit BID VINICIO Administration Hydralazine HCl 10 mg 05/13/24 06:58 05/13/24 13:27 Hydralazine Inj 20 Mg/Ml Vial IVP 10 mg Q4H PRN Administration Blood Pressure Ibuprofen 600 mg 05/12/24 18:06 Ibuprofen 600 Mg Tablet PO Q6HR PRN Pain 1 to 4 Latanoprost 1 drops 05/12/24 21:00 05/13/24 20:44 Latanoprost 0.005% Ophth Drops EACHEYE 1 drops HS VINICIO Administration Levothyroxine Sodium 75 mcg 05/13/24 07:00 05/14/24 05:08 Levothyroxine 75 Mcg Tablet PO 75 mcg QDAC VINICIO Administration Lisinopril 10 mg 05/14/24 09:00 05/14/24 08:28 Lisinopril 5 Mg Tablet PO Not Given DAILY VINICIO Melatonin 3 mg 05/13/24 21:00 05/13/24 20:44 Melatonin 3 Mg Tablet PO 3 mg QPM VINICIO Administration Multivitamins/Minerals 1 tab 05/14/24 12:00 05/14/24 11:37 Multivitamin W/Minerals Tablet PO 1 tab DAILYWM VINICIO Administration Ondansetron HCl 4 mg 05/12/24 18:06 05/14/24 08:49 Ondansetron Odt 4 Mg Tablet TL 4 mg Q6HR PRN Administration Nausea / Vomiting Polyethylene Glycol 17 gm 05/13/24 09:00 05/14/24 08:27 Polyethylene Glycol 3350 17 Gm Packet PO Not Given DAILY VINICIO Polyethylene Glycol 17 gm 05/13/24 17:13 05/13/24 17:14 Polyethylene Glycol 3350 17 Gm Packet PO 17 gm DAILY PRN Administration Bowel Protocol Senna 8.6 - 17.2 mg 05/13/24 09:00 05/14/24 08:26 Senna 8.6 Mg Tablet PO Not Given DAILY VINICIO Sodium Chloride 10 ml 05/12/24 18:06 Sodium Chloride Flush 0.9% 10 Ml Syringe IVP PRN PRN NEEDED PER PROVIDER ORDERS Sodium Chloride 10 ml 05/13/24 01:00 05/14/24 08:29 Sodium Chloride Flush 0.9% 10 Ml Syringe IVP 10 ml 0100,0900,1700 VINICIO Administration Timolol Maleate 1 drops 05/13/24 09:00 05/14/24 08:22 Timolol 0.5% Ophth Drops EACHEYE 1 drops DAILY VINICIO Administration Objective Vital Signs/Intake & Output Reviewed Vital Signs: Yes Vital Signs: Vital Signs x48h Temp Pulse Pulse Resp BP Pulse Ox 05/14/24 15:47 80 151/79 H 05/14/24 13:00 36.8 C 80 22 119/55 L 94 05/14/24 10:25 36.7 C 74 16 126/71 94 Intake & Output: Intake & Output 05/11/24 05/12/24 05/13/24 05/14/24 23:59 23:59 23:59 23:59 Intake Total 350 / 350 946 / 946 450 / 450 Balance 350 / 350 946 / 946 450 / 450 Weight (kg) 46.5 kg Objective General Appearance: positive No acute distress and Other (remains ill appearing. ) Eyes Bilateral: positive Conjunctivae nml ENT: positive ENT inspection nml Neck: positive Nml inspection Respiratory: positive Chest non-tender, No respiratory distress and Breath sounds nml Cardiovascular: positive Regular rate & rhythm Abdomen: positive No distention Skin: positive Color nml and No rash Extremities: positive Non-tender and No pedal edema Lab Results 05/14/24 04:59 05/14/24 04:59 Other Labs: Lab Results x24hrs 05/14/24 Range/Units 04:59 WBC 11.3 H (4.8-10.8) x10^3/uL RBC 4.67 (4.20-5.40) 10^6/uL Hgb 13.9 (12.0-16.0) g/dL Hct 42.6 (37.0-47.0) % MCV 91.2 (81.0-99.0) fL MCH 29.8 (27.0-31.0) pg MCHC 32.6 (32.0-36.0) g/dL RDW 14.0 (12.0-15.0) % Plt Count 432 (130-450) 10^3/uL MPV 9.3 (7.9-10.8) fL Neut # (Auto) 8.0 H (1.5-6.6) 10^3/uL Lymph # (Auto) 2.0 (1.5-3.5) 10^3/uL [place] # (Auto) 1.2 H (0.0-1.0) 10^3/uL Eos # (Auto) 0.0 (0.0-0.7) 10^3/uL Baso # (Auto) 0.0 (0.0-0.1) 10^3/uL Absolute Nucleated RBC 0.00 x10^3/uL Nucleated RBC % 0.0 /100WBC Sodium 138 (135-145) mmol/L Potassium 3.6 (3.5-4.5) mmol/L Chloride 103 (101-111) mmol/L Carbon Dioxide 25 (21-32) mmol/L Anion Gap 10.0 (6-13) BUN 12 (6-20) mg/dL Creatinine 0.5 L (0.6-1.3) mg/dL Estimated GFR (MDRD) 122 (>89) Glucose 147 H (74-104) mg/dL Calcium 8.9 (8.5-10.3) mg/dL Random Cortisol 6.4 ug/dL ABX Reporting Has patient been on IV antibiotics over the past 48 hours?: Yes Sepsis Event Note (H) Evaluation Current Stage of Sepsis: Ruled out Assessment/Plan Problem List (1) Hypertension: Impression: The plan was to discharge this patient to home given her resolution of her need for oxygen. I was going to send her home with completion of antibiotics and steroid therapy as well as treatment of her cough. She had elevated blood pressures overnight and was given hydralazine as needed. Her blood pressures have subsequently normalized. She has been normotensive to hypotensive today. I initially started her on lisinopril here in the hospital since I was going to observe her overnight but now that her blood pressures have dropped again I will discontinue this and just keep hydralazine as needed. 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 This was excised years ago. She states she does have a history of a small pheochromocytoma on the opposite side. It has been years since this has been imaged. She recently had blood metanephrines checked and these were negative. Given this history and the lability of her blood pressures I am checking an MRI of the abdomen with contrast to ensure that she does not have a second pheochromocytoma given her syndrome. She feels weak and dizzy irregardless of what her blood pressures are. My intention was to have her evaluated by therapies today but unfortunately I do not have PT or OT available. 05/14/24 00:15 05/14/24 05:00 05/14/24 07:13 Pulse Rate 80 Pulse Rate [Brachial] Pulse Rate [Monitoring electrodes] 85 88 Blood Pressure [Left Brachial artery] Blood Pressure [Right Brachial artery] 105/68 05/14/24 07:19 05/14/24 10:25 05/14/24 13:00 Pulse Rate Pulse Rate [Brachial] Pulse Rate [Monitoring electrodes] 75 74 80 Blood Pressure [Left Brachial artery] 87/48 L 126/71 119/55 L Blood Pressure [Right Brachial artery] 05/14/24 15:47 Pulse Rate Pulse Rate [Brachial] 80 Pulse Rate [Monitoring electrodes] Blood Pressure [Left Brachial artery] 151/79 H Blood Pressure [Right Brachial artery] (2) Respiratory failure with hypoxia: Impression: Resolved . She has passed an oxygen desaturation test. She is 100% with ambulation. She has responded well to treatment with steroids and IV antibiotics. She is asking for respiratory treatment this morning did not get any overnight. (3) Influenza A: Impression: Acute hypoxic respiratory failure secondary to this influenza A infection she received Tamiflu as an outpatient. We are treating with anti-inflammatories Tylenol and Zofran as needed. (4) Community acquired pneumonia: Impression: Groundglass opacities on CT of the chest. Indicative of inflammation there is no dense consolidation. Her white blood cell count is within normal limits I am treating her for community-acquired pneumonia with azithromycin x 3 days and Rocephin x 5 days. She is day 3 through azithromycin although she has received time in the outpatient environment and she is day 3 of 5 Rocephin. 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 She has chronic dysphagia and drinks thickened liquids. She is currently tolerating her diet. (6) Seborrheic dermatitis: Impression: Ongoing and problematic for the patient. She states that her scalp is itchy and uncomfortable. She does indeed have scabbing and scaling in patches on her scalp. She has severe dandruff.She has been given ketoconazole shampoo in the outpatient environment. This is not working. I educated the patient regarding treatment of seborrheic dermatitis of the scalp. She will use [id number] T-Gel and T Randy shampoos mixed with her ketoconazole and I will prescribe her topical clobetasol solution for her scalp. 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 I have spent 36 minutes in the care of this patient today. This includes time [id number], review and ordering of diagnostic imaging and laboratory studies.. Monitoring the patient's signs symptoms, evaluation of medication effectiveness and patient's response to treatment.
[2024-05-14] MEDS: CITALOPRAM HYDROBROMIDE 20 MG TABLET PO SCH (20:48)
[2024-05-15 05:55] LABS: BASOPHILS % (AUTO) 0.1 %; EOSINOPHILS % (AUTO) 0.3 %; HCT - HEMATOCRIT 37.7 % (37.0-47.0); HGB - HEMOGLOBIN 12.1 g/dL (12.0-16.0); LYMPHOCYTES # (AUTO) 2.5 10^3/uL (1.5-3.5); LYMPHOCYTES % (AUTO) 21.9 %; MEAN CORPUSCULAR HEMOGLOBIN 29.3 pg (27.0-31.0); MEAN CORPUSCULAR HGB CONC 32.1 g/dL (32.0-36.0); MEAN CORPUSCULAR VOLUME 91.3 fL (81.0-99.0); MEAN PLATELET VOLUME 8.8 fL (7.9-10.8); MONOCYTES # (AUTO) 1.1 10^3/uL (0.0-1.0); MONOCYTES % (AUTO) 9.4 %; NEUTROPHILS # (AUTO) 7.6 10^3/uL (1.5-6.6); NEUTROPHILS % (AUTO) 67.8 %; PLT - PLATELET COUNT 495 10^3/uL (130-450); RED BLOOD COUNT 4.13 10^6/uL (4.20-5.40); RED CELL DISTRIBUTION WIDTH 14.2 % (12.0-15.0); WHITE BLOOD COUNT 11.3 x10^3/uL (4.8-10.8)
[2024-05-15 06:10] LABS: CALCIUM 8.3 mg/dL (8.5-10.3); CREATININE 0.5 mg/dL (0.6-1.3); POTASSIUM 3.7 mmol/L (3.5-4.5)
[2024-05-15] MEDS: SODIUM CHLORIDE 0.9% 500 ML IV ONE (10:33)
[2024-05-15] MEDS ORDERED: GADOTERATE MEGLUMINE 5 MMOL/10 ML VIAL ONE (11:22)
--- NOTE | 2024-05-15 14:08 | MRI Report ---
PROCEDURE: MRI Abdomen W/WO INDICATIONS: h/o pheochromocytoma: MEN2a, labile BP CONTRAST: 13ml CLARISCAN TECHNIQUE: Coronal ultra fast SE, axial 2D spoiled GE in- and [id number]; axial breath-hold T2 fast SE. Dynam ic axial ultra fast GE during the administration of contrast; post-contrast coronal ultra fast GE or 2D spoiled GE with fat saturation from the hepatic dome to the iliac crests. Optional diffusion weig hted imaging and ADC may be performed. COMPARISON: CT angiogram chest 05/12/2024 FINDINGS: Image quality: Decreased due to respiratory motion.. Lung bases and heart: No pleural or pericardial effusion. Liver: No solid mass. Gallbladder and biliary tree: No visible stones. No intra or extrahepatic biliary dilatation. Spleen: No splenomegaly. Pancreas: No pancreatic ductal dilation. Adrenals: The left adrenal gland is surgically absent. There is susceptibility artifact of surgical c lips in this region. There is a T2 hyperintense mass within the right adrenal gland arising between t he lateral and medial limb measuring roughly 2.0 x 1.8 cm. It is T2 hyperintense on heavily T2-weight ed imaging and there is no T1 hypointensity on out of phase imaging. It demonstrates slightly heterog eneous arterial enhancement with small amount of washout on delayed phase images. Kidneys and ureters: Symmetric enhancement. No hydronephrosis or nephrolithiasis. No solid mass or cy st requiring follow-up. Ureters are within normal limits. No visible retroperitoneal masses. Bowel and peritoneum: Stomach and visible loops of small bowel are unremarkable. The loops of colon d emonstrate diverticulosis. No visible intraperitoneal fluid collections. Lymph nodes: No central or retroperitoneal adenopathy. Vessels: Normal caliber abdominal aorta, IVC, and portal vein. Circumaortic left renal vein. Bones: No aggressive osseous abnormality. Other: No significant ventral hernia. IMPRESSION: 2.0 cm hypervascular right adrenal mass with imaging features consistent with pheochromocytoma. Featu res are not suggestive of lipid rich adrenal adenoma. Left adrenalectomy. Colonic diverticulosis. Reviewed by: Gunjan Christine MD on 05/15/2024 2:06 PM PST Approved by: Gunjan Christine MD on 05/15/2024 2:06 PM PST Station ID: [id number]
--- NOTE | 2024-05-15 15:03 | PT Plan of Care ---
PT Plan of Care Physical Therapy Plan of Care: Diagnosis Diagnosis influenza A Diagnosis pneumonia with hypoxia Referring Provider Lisa Silvestre Patient Status Inpatient Chief Complaint Chief Complaint weak, dizzy Onset of Chief Complaint [employer] Assessment Assessment Pt is a pleasant 68yo F referred for PT eval d/t weakness and dizziness resulting from influenza A and pna. Extensive PMH/PSH including neck/ throat reconstruction performed at in spring 2023. Pt reports she was dc'd home after that surgery and was using a walker working with HH until recently. Recently pt has been indep with mobility in home but had post-surgical complications and overall decline in mobility over the last several months. Upon PT eval today , pt transfers Angelita but requires increased time to complete tasks, coughs with increased L ch est wall pain with all mobility, sats WNL at rest and with activity. Orthostatic hypotension with transfers, supine BP 142/70, HR 77; seated BP 103/59, HR 85; standing BP 98/58, HR 95. Pt reports increasing dizziness with all activity. Given symptomatic orthostasis, progression of activities contraindicated at this time and pt left in bed at end of session. Pt may benefit from skilled PT during acute stay to improve activity tolerance and endurance. Pt encouraged to get up to chair for all meals with FWW and nsg assist. At this time, PT rec dc to SNF given significance of deconditioning. Pt however reports preference to dc home with CG support and HH. PT will update recs closer to time of dc . Goals Improve bed mobility to: Independent Improve supine to sit to: Independent Improve sit to stand to: Modified Independent Improve pivot transfer ability Modified Independent to: Improve sit to supine to: Modified Independent Improve gait ability to: Ind Assistive Device Used: None,Front Wheeled Walker PT Plan of Care Frequency 1-2x/day Duration Until goals are met Discharge Recommendations Discharge Location SNF v home Other has walker Transport Needs at Discharge Personal vehicle
--- NOTE | 2024-05-15 15:30 | PROVIDER PROGRESS NOTE ---
Subjective Prog Note Date Prog Note Date: 05/15/24 Subjective Subjective: She remains weak and dizzy. She has been orthostatic when she tried to get up with PT. She still feels tired,coughing occasionally. She has been able to get up to the bathroom with assistance. Current Medications Current Medications Current Medications: Current Medications Generic Name Dose Route Start Last Admin Trade Name Freq PRN Reason Stop Dose Admin Acetaminophen 650 mg 05/12/24 18:06 05/13/24 13:37 Acetaminophen 325 Mg Tablet PO 650 mg Q4HR PRN Administration Pain 1 to 4, or Fever Hydrocodone Bitart/Acetaminophen 1 tab 05/12/24 18:21 05/15/24 13:30 Hydrocod/Acetam 5/325 Mg Tablet PO 1 tab Q4HR PRN Administration Moderate Pain (Level 4-6) Albuterol/Ipratropium 3 ml 05/12/24 18:21 05/15/24 07:59 Ipratropium/Albuterol 3 Ml Neb INH 3 ml RTQID PRN Administration Shortness of Air/Wheezing Aspirin 81 mg 05/13/24 09:00 05/15/24 08:34 Aspirin Chew 81 Mg Tablet PO 81 mg DAILY VINICIO Administration Ceftriaxone Sodium 1 gm 05/13/24 09:00 05/15/24 08:33 Ceftriaxone 1 Gm Vial IVP 05/16/24 09:01 1 gm DAILY VINICOI Administration Citalopram Hydrobromide 20 mg 05/14/24 16:16 05/14/24 20:48 Citalopram Hydrobromide 20 Mg Tablet PO Not Given HS VINICIO Clonazepam 0.5 mg 05/12/24 18:21 05/15/24 08:34 Clonazepam 0.5 Mg Tablet PO 0.5 mg BID PRN Administration Anxiety Dexamethasone 6 mg 05/14/24 09:00 05/15/24 08:34 Dexamethasone 4 Mg Tablet PO 05/17/24 09:01 6 mg DAILY VINICIO Administration Docusate Sodium 250 - 500 mg 05/13/24 09:00 05/15/24 08:36 Docusate Sodium 250 Mg Capsule PO Not Given DAILY VINICIO Fluticasone Propionate 1 sprays 05/12/24 21:55 05/15/24 08:35 Fluticasone Nasal [place] ZAC 1 spray DAILY VINICIO Administration Guaifenesin/Codeine Phosphate 5 ml 05/12/24 21:54 05/15/24 13:29 Guaifenesin/Codeine 5 Ml Udc PO 5 ml Q6HR PRN Administration Cough Heparin Sodium (Porcine) 5,000 unit 05/12/24 21:00 05/15/24 08:35 Heparin 5,000 Unit/Ml Vial SUBQ 5,000 unit BID VINICIO Administration Hydralazine HCl 10 mg 05/13/24 06:58 05/13/24 13:27 Hydralazine Inj 20 Mg/Ml Vial IVP 10 mg Q4H PRN Administration Blood Pressure Ibuprofen 600 mg 05/12/24 18:06 Ibuprofen 600 Mg Tablet PO Q6HR PRN Pain 1 to 4 Latanoprost 1 drops 05/12/24 21:00 05/14/24 20:48 Latanoprost 0.005% Ophth Drops EACHEYE 1 drops HS VINICIO Administration Levothyroxine Sodium 75 mcg 05/13/24 07:00 05/15/24 06:16 Levothyroxine 75 Mcg Tablet PO 75 mcg QDAC VINICIO Administration Melatonin 3 mg 05/13/24 21:00 05/14/24 20:48 Melatonin 3 Mg Tablet PO 3 mg QPM VINICIO Administration Multivitamins/Minerals 1 tab 05/14/24 12:00 05/15/24 08:34 Multivitamin W/Minerals Tablet PO 1 tab DAILYWM VINICIO Administration Ondansetron HCl 4 mg 05/12/24 18:06 05/15/24 09:02 Ondansetron Odt 4 Mg Tablet TL 4 mg Q6HR PRN Administration Nausea / Vomiting Polyethylene Glycol 17 gm 05/13/24 09:00 05/15/24 08:36 Polyethylene Glycol 3350 17 Gm Packet PO Not Given DAILY VINICIO Polyethylene Glycol 17 gm 05/13/24 17:13 05/13/24 17:14 Polyethylene Glycol 3350 17 Gm Packet PO 17 gm DAILY PRN Administration Bowel Protocol Senna 8.6 - 17.2 mg 05/13/24 09:00 05/15/24 08:34 Senna 8.6 Mg Tablet PO 8.6 mg DAILY VINICIO Administration Sodium Chloride 10 ml 05/12/24 18:06 Sodium Chloride Flush 0.9% 10 Ml Syringe IVP PRN PRN NEEDED PER PROVIDER ORDERS Sodium Chloride 10 ml 05/13/24 01:00 05/15/24 08:36 Sodium Chloride Flush 0.9% 10 Ml Syringe IVP 10 ml 0100,0900,1700 VINICIO Administration Timolol Maleate 1 drops 05/13/24 09:00 05/15/24 08:34 Timolol 0.5% Ophth Drops EACHEYE 1 drops DAILY VINICIO Administration Objective Vital Signs/Intake & Output Reviewed Vital Signs: Yes Vital Signs: Vital Signs x48h Pulse Pulse Pulse Pulse Resp BP BP 05/15/24 14:00 85 95 77 103/59 L 98/58 L 05/15/24 08:02 84 20 BP 05/15/24 14:00 142/70 H 05/15/24 08:02 Intake & Output: Intake & Output 05/12/24 05/13/24 05/14/24 05/15/24 23:59 23:59 23:59 23:59 Intake Total 350 / 350 946 / 946 570 / 570 1056 / 1056 Balance 350 / 350 946 / 946 570 / 570 1056 / 1056 Weight (kg) 46.5 kg Objective General Appearance: positive No acute distress and Other (appears chronically ill) Eyes Bilateral: positive Normal inspection ENT: negative Dry mucous membranes Neck: positive Nml inspection, Trachea midline and Other (chronic surgical scars to the neck) Respiratory: positive No respiratory distress and Breath sounds nml Cardiovascular: positive Regular rate & rhythm and Other (orthostatic hypotension) Abdomen: positive No distention Skin: positive Color nml Extremities: positive Non-tender and No pedal edema Neurologic/Psychiatric: positive Oriented x3 Lab Results 05/15/24 05:42 05/15/24 05:42 Other Labs: Lab Results x24hrs 05/15/24 Range/Units 05:42 WBC 11.3 H (4.8-10.8) x10^3/uL RBC 4.13 L (4.20-5.40) 10^6/uL Hgb 12.1 (12.0-16.0) g/dL Hct 37.7 (37.0-47.0) % MCV 91.3 (81.0-99.0) fL MCH 29.3 (27.0-31.0) pg MCHC 32.1 (32.0-36.0) g/dL RDW 14.2 (12.0-15.0) % Plt Count 495 H (130-450) 10^3/uL MPV 8.8 (7.9-10.8) fL Neut # (Auto) 7.6 H (1.5-6.6) 10^3/uL Lymph # (Auto) 2.5 (1.5-3.5) 10^3/uL [place] # (Auto) 1.1 H (0.0-1.0) 10^3/uL Eos # (Auto) 0.0 (0.0-0.7) 10^3/uL Baso # (Auto) 0.0 (0.0-0.1) 10^3/uL Absolute Nucleated RBC 0.00 x10^3/uL Nucleated RBC % 0.0 /100WBC Sodium 138 (135-145) mmol/L Potassium 3.7 (3.5-4.5) mmol/L Chloride 102 (101-111) mmol/L Carbon Dioxide 29 (21-32) mmol/L Anion Gap 7.0 (6-13) BUN 15 (6-20) mg/dL Creatinine 0.5 L (0.6-1.3) mg/dL Estimated GFR (MDRD) 122 (>89) Glucose 109 H (74-104) mg/dL Calcium 8.3 L (8.5-10.3) mg/dL ABX Reporting Has patient been on IV antibiotics over the past 48 hours?: Yes Sepsis Event Note (H) Evaluation Current Stage of Sepsis: Ruled out Assessment/Plan Problem List (1) Hypertension: Impression: The plan was to discharge this patient to home given her resolution of her need for oxygen. I was going to send her home with completion of antibiotics and steroid therapy as well as treatment of her cough. She had elevated blood pressures overnight and was given hydralazine as needed. Her blood pressures have subsequently normalized. I initially started her on lisinopril here in the hospital since I was going to observe her overnight but now then her blood pressures dropped and I had discontinued blood pressure treatment. 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 This was excised years ago. She states she does have a history of a small pheochromocytoma on the opposite side. It has been years since this has been imaged. She recently had blood metanephrines checked. She gives me levels of metanephrines 0.72 and normetanephrines 1.5 on 04/19/24. Both of these are elevated values, but she states that they were not concerning to her forms designer, Dr Mason. Given this history and the lability of her blood pressures I am checking an MRI of the abdomen with contrast to ensure that she does not have a second pheochromocytoma given her syndrome. The MRI shows a 2cm pheochromocytoma- no growth as compared to previous studies. She had orthostatic hypotension with PT and OT today. I spoke with Dr. Moser today at [facility]'s. He is an internal medicine hospitalist. He was able to review records with regards to endocrinology visits at the over the last several years. He states that he feels her endocrine situation is stable her labs are okay and he is not inclined to think that this is an endocrine problem. He recommends compression therapy to include compression socks and abdominal binder when she gets up and to give her several more days and hopefully her orthostatic hypotension will resolve. He also gave me daytime resources for endocrinology consultation and invited me to call back in several days if Ms. Farias does not improve. I am adjusting steroids down to 4mg daily. Selected Entries 05/15/24 07:13 05/15/24 14:00 05/15/24 16:00 Pulse Rate Pulse Rate [Monitoring electrodes] 76 Pulse Rate [Sitting] 85 Pulse Rate [Standing] 95 Pulse Rate [Supine] 77 Blood Pressure [Left Brachial artery] 96/59 L 105/56 L Blood Pressure [Sitting] 103/59 L Blood Pressure [Standing] 98/58 L Blood Pressure [Supine] 142/70 H 05/15/24 16:47 Pulse Rate 88 Pulse Rate [Monitoring electrodes] Pulse Rate [Sitting] Pulse Rate [Standing] Pulse Rate [Supine] Blood Pressure [Left Brachial artery] Blood Pressure [Sitting] Blood Pressure [Standing] Blood Pressure [Supine] (2) Respiratory failure with hypoxia: Impression: Resolved . She has passed an oxygen desaturation test. She is 100% with ambulation. She has responded well to treatment with steroids and IV antibiotics. I am adjusting steroids down as she has been on them since 05/09. (3) Influenza A: Impression: Acute hypoxic respiratory failure secondary to this influenza A infection she received Tamiflu as an outpatient. We are treating with anti-inflammatories Tylenol and Zofran as needed. (4) Community acquired pneumonia: Impression: Groundglass opacities on CT of the chest. Indicative of inflammation there is no dense consolidation. Her white blood cell count is within normal limits I am treating her for community-acquired pneumonia with azithromycin x 3 days and Rocephin x 5 days. She has completed azithromycin and she is day 4 of 5 Rocephin. 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 She has chronic dysphagia and drinks thickened liquids. She is currently tolerating her diet. (6) Seborrheic dermatitis: Impression: Ongoing and problematic for the patient. She states that her scalp is itchy and uncomfortable. She does indeed have scabbing and scaling in patches on her scalp. She has severe dandruff.She has been given ketoconazole shampoo in the outpatient environment. This is not working. I educated the patient regarding treatment of seborrheic dermatitis of the scalp. She will use [id number] T-Gel and T Randy shampoos mixed with her ketoconazole and I will prescribe her topical clobetasol solution for her scalp. She will follow-up with her international guest coordinator. I have spent 55 minutes in the care of this patient today. This includes time [id number], review and ordering of diagnostic imaging and laboratory studies, and consultation with outside providers.. Monitoring the patient's signs symptoms, evaluation of medication effectiveness and patient's response to treatment.
[2024-05-15 16:26] LABS: BILIRUBIN,URINE NEGATIVE (NEGATIVE); GLUCOSE, URINE (UA) >=1000 mg/dL (NEGATIVE); KETONES,URINE (UA) NEGATIVE (NEGATIVE); LEUKOCYTE ESTERASE, URINE NEGATIVE (NEGATIVE); NITRITE,URINE NEGATIVE (NEGATIVE); OCCULT BLOOD,URINE NEGATIVE (NEGATIVE); PH,URINE 7.5 PH (5.0-7.5); PROTEIN,URINE NEGATIVE (NEGATIVE); UROBILINOGEN,URINE 0.2 (NORMAL) E.U./dL (NORMAL)
[2024-05-15 16:38] LABS: CLARITY,URINE CLEAR (CLEAR)
[2024-05-15 16:39] LABS: BACTERIA,URINE None Seen /HPF (None Seen); RBC,URINE None Seen /HPF (0-5); SQUAMOUS EPITHELIAL CELL,UR RARE Squamous (<= Few); WBC,URINE 0-3 /HPF (0-5)
[2024-05-15] MEDS: GADOTERATE MEGLUMINE 5 MMOL/10 ML VIAL IVP ONE (18:13)
[2024-05-16 05:52] LABS: BASOPHILS % (AUTO) 0.1 %; EOSINOPHILS % (AUTO) 0.2 %; HCT - HEMATOCRIT 36.6 % (37.0-47.0); HGB - HEMOGLOBIN 11.9 g/dL (12.0-16.0); LYMPHOCYTES # (AUTO) 2.1 10^3/uL (1.5-3.5); LYMPHOCYTES % (AUTO) 16.5 %; MEAN CORPUSCULAR HEMOGLOBIN 29.7 pg (27.0-31.0); MEAN CORPUSCULAR HGB CONC 32.5 g/dL (32.0-36.0); MEAN CORPUSCULAR VOLUME 91.3 fL (81.0-99.0); MEAN PLATELET VOLUME 8.8 fL (7.9-10.8); MONOCYTES % (AUTO) 7.5 %; NEUTROPHILS # (AUTO) 9.6 10^3/uL (1.5-6.6); NEUTROPHILS % (AUTO) 75.1 %; PLT - PLATELET COUNT 514 10^3/uL (130-450); RED BLOOD COUNT 4.01 10^6/uL (4.20-5.40); WHITE BLOOD COUNT 12.8 x10^3/uL (4.8-10.8)
[2024-05-16 06:04] LABS: CALCIUM 8.4 mg/dL (8.5-10.3); CREATININE 0.5 mg/dL (0.6-1.3); POTASSIUM 3.9 mmol/L (3.5-4.5)
[2024-05-16] MEDS: CALCIUM CARBONATE CHEW 500 MG TABLET PO PRN (12:17)
[2024-05-16] MEDS: dexAMETHasone 4 MG TABLET PO SCH (12:17)
[2024-05-16] MEDS: PANTOPRAZOLE 40 MG TABLET PO SCH (12:17)
--- NOTE | 2024-05-16 15:45 | PROVIDER PROGRESS NOTE ---
Subjective Prog Note Date Prog Note Date: 05/16/24 Subjective Pt reports feeling: No change Current Medications Current Medications Current Medications: Current Medications Generic Name Dose Route Start Last Admin Trade Name Rosemarie PRN Reason Stop Dose Admin Acetaminophen 650 mg 05/12/24 18:06 05/13/24 13:37 Acetaminophen 325 Mg Tablet PO 650 mg Q4HR PRN Administration Pain 1 to 4, or Fever Hydrocodone Bitart/Acetaminophen 1 tab 05/12/24 18:21 05/16/24 08:47 Hydrocod/Acetam 5/325 Mg Tablet PO 1 tab Q4HR PRN Administration Moderate Pain (Level 4-6) Albuterol/Ipratropium 3 ml 05/12/24 18:21 05/15/24 21:15 Ipratropium/Albuterol 3 Ml Neb INH 3 ml RTQID PRN Administration Shortness of Air/Wheezing Aspirin 81 mg 05/13/24 09:00 05/16/24 08:27 Aspirin Chew 81 Mg Tablet PO 81 mg DAILY VINICIO Administration Calcium Carbonate/Glycine 500 mg 05/16/24 11:15 05/16/24 12:23 Calcium Carbonate Chew 500 Mg Tablet PO 500 mg BID PRN Administration Heartburn Citalopram Hydrobromide 20 mg 05/14/24 16:16 05/15/24 20:47 Citalopram Hydrobromide 20 Mg Tablet PO 20 mg HS VINICIO Administration Clonazepam 0.5 mg 05/12/24 18:21 05/16/24 07:05 Clonazepam 0.5 Mg Tablet PO 0.5 mg BID PRN Administration Anxiety Dexamethasone 4 mg 05/16/24 09:00 05/16/24 12:17 Dexamethasone 4 Mg Tablet PO 05/17/24 09:01 Not Given DAILY VINICIO Docusate Sodium 250 - 500 mg 05/13/24 09:00 05/16/24 08:32 Docusate Sodium 250 Mg Capsule PO Not Given DAILY VINICIO Fluticasone Propionate 1 sprays 05/12/24 21:55 05/16/24 08:28 Fluticasone Nasal [place] ZAC 1 spray DAILY VINICIO Administration Guaifenesin/Codeine Phosphate 5 ml 05/12/24 21:54 05/16/24 02:30 Guaifenesin/Codeine 5 Ml Udc PO 5 ml Q6HR PRN Administration Cough Heparin Sodium (Porcine) 5,000 unit 05/12/24 21:00 05/16/24 08:27 Heparin 5,000 Unit/Ml Vial SUBQ 5,000 unit BID VINICIO Administration Hydralazine HCl 10 mg 05/13/24 06:58 05/13/24 13:27 Hydralazine Inj 20 Mg/Ml Vial IVP 10 mg Q4H PRN Administration Blood Pressure Ibuprofen 600 mg 05/12/24 18:06 Ibuprofen 600 Mg Tablet PO Q6HR PRN Pain 1 to 4 Latanoprost 1 drops 05/12/24 21:00 05/15/24 20:47 Latanoprost 0.005% Ophth Drops EACHEYE 1 drops HS VINICIO Administration Levothyroxine Sodium 75 mcg 05/13/24 07:00 05/16/24 06:20 Levothyroxine 75 Mcg Tablet PO 75 mcg QDAC VINICIO Administration Melatonin 3 mg 05/13/24 21:00 05/15/24 20:47 Melatonin 3 Mg Tablet PO 3 mg QPM VINICIO Administration Multivitamins/Minerals 1 tab 05/14/24 12:00 05/16/24 08:27 Multivitamin W/Minerals Tablet PO 1 tab DAILYWM VINICIO Administration Ondansetron HCl 4 mg 05/12/24 18:06 05/16/24 13:10 Ondansetron Odt 4 Mg Tablet TL 4 mg Q6HR PRN Administration Nausea / Vomiting Pantoprazole Sodium 40 mg 05/16/24 12:00 05/16/24 12:17 Pantoprazole 40 Mg Tablet PO 40 mg QDAC VINICIO Administration Polyethylene Glycol 17 gm 05/13/24 09:00 05/16/24 08:32 Polyethylene Glycol 3350 17 Gm Packet PO Not Given DAILY VINICIO Polyethylene Glycol 17 gm 05/13/24 17:13 05/13/24 17:14 Polyethylene Glycol 3350 17 Gm Packet PO 17 gm DAILY PRN Administration Bowel Protocol Senna 8.6 - 17.2 mg 05/13/24 09:00 05/16/24 08:32 Senna 8.6 Mg Tablet PO Not Given DAILY VINICIO Sodium Chloride 10 ml 05/12/24 18:06 Sodium Chloride Flush 0.9% 10 Ml Syringe IVP PRN PRN NEEDED PER PROVIDER ORDERS Sodium Chloride 10 ml 05/13/24 01:00 05/16/24 08:28 Sodium Chloride Flush 0.9% 10 Ml Syringe IVP 10 ml 0100,0900,1700 VINICIO Administration Timolol Maleate 1 drops 05/13/24 09:00 05/16/24 08:28 Timolol 0.5% Ophth Drops EACHEYE 1 drops DAILY VINICIO Administration Objective Vital Signs/Intake & Output Reviewed Vital Signs: Yes Vital Signs: Vital Signs x48h Temp Pulse Resp BP Pulse Ox O2 Flow Rate 05/16/24 08:16 36.7 C 74 18 97/57 L 96 0 Intake & Output: Intake & Output 05/13/24 05/14/24 05/15/24 05/16/24 23:59 23:59 23:59 23:59 Intake Total 946 / 946 570 / 570 1416 / 1416 750 / 750 Output Total 225 / 225 Balance 946 / 946 570 / 570 1191 / 1191 750 / 750 Objective General Appearance: positive No acute distress and Other (Elderly appearing) Eyes Bilateral: positive Normal inspection Neck: positive Nml inspection and Other (chronic surgical scars to the neck) Respiratory: positive No respiratory distress and Breath sounds nml Cardiovascular: positive Regular rate & rhythm Abdomen: positive No distention Skin: positive Color nml Extremities: positive Non-tender and No pedal edema Neurologic/Psychiatric: positive Oriented x3 Lab Results 05/16/24 05:38 05/16/24 05:38 Other Labs: Lab Results x24hrs 05/16/24 05/15/24 Range/Units 05:38 16:00 WBC 12.8 H (4.8-10.8) x10^3/uL RBC 4.01 L (4.20-5.40) 10^6/uL Hgb 11.9 L (12.0-16.0) g/dL Hct 36.6 L (37.0-47.0) % MCV 91.3 (81.0-99.0) fL MCH 29.7 (27.0-31.0) pg MCHC 32.5 (32.0-36.0) g/dL RDW 14.0 (12.0-15.0) % Plt Count 514 H (130-450) 10^3/uL MPV 8.8 (7.9-10.8) fL Neut # (Auto) 9.6 H (1.5-6.6) 10^3/uL Lymph # (Auto) 2.1 (1.5-3.5) 10^3/uL [place] # (Auto) 1.0 (0.0-1.0) 10^3/uL Eos # (Auto) 0.0 (0.0-0.7) 10^3/uL Baso # (Auto) 0.0 (0.0-0.1) 10^3/uL Absolute Nucleated RBC 0.00 x10^3/uL Nucleated RBC % 0.0 /100WBC Sodium 140 (135-145) mmol/L Potassium 3.9 (3.5-4.5) mmol/L Chloride 105 (101-111) mmol/L Carbon Dioxide 29 (21-32) mmol/L Anion Gap 6.0 (6-13) BUN 9 (6-20) mg/dL Creatinine 0.5 L (0.6-1.3) mg/dL Estimated GFR (MDRD) 122 (>89) Glucose 113 H (74-104) mg/dL Calcium 8.4 L (8.5-10.3) mg/dL Urine Color YELLOW Urine Clarity CLEAR (CLEAR) Urine pH 7.5 (5.0-7.5) PH Ur Specific [place] 1.015 (1.002-1.030) Urine Protein NEGATIVE (NEGATIVE) mg/dL Urine Glucose (UA) >=1000 H (NEGATIVE) mg/dL Urine Ketones NEGATIVE (NEGATIVE) mg/dL Urine Occult Blood NEGATIVE (NEGATIVE) Urine Nitrite NEGATIVE (NEGATIVE) Urine Bilirubin NEGATIVE (NEGATIVE) Urine Urobilinogen 0.2 (NORMAL) (NORMAL) E.U./dL Ur Leukocyte Esterase NEGATIVE (NEGATIVE) Urine RBC None Seen (0-5) /HPF Urine WBC 0-3 (0-5) /HPF Ur Squamous Epith Cells RARE Squamous (<= Few) Urine Bacteria None Seen (None Seen) /HPF Urine Culture Comments NOT INDICATED Sepsis Event Note (H) Evaluation Current Stage of Sepsis: Ruled out Assessment/Plan Problem List (1) Hypertension: Impression: "The plan was to discharge this patient to home given her resolution of her need for oxygen. I was going to send her home with completion of antibiotics and steroid therapy as well as treatment of her cough. She had elevated blood pressures overnight and was given hydralazine as needed. Her blood pressures have subsequently normalized. I initially started her on lisinopril here in the hospital since I was going to observe her overnight but now then her blood pressures dropped and I had discontinued blood pressure treatment. 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 This was excised years ago. She states she does have a history of a small pheochromocytoma on the opposite side. It has been years since this has been imaged. She recently had blood metanephrines checked. She gives me levels of metanephrines 0.72 and normetanephrines 1.5 on 04/19/24. Both of these are elevated values, but she states that they were not concerning to her residential tech, Dr Mason. Given this history and the lability of her blood pressures I am checking an MRI of the abdomen with contrast to ensure that she does not have a second pheochromocytoma given her syndrome. The MRI shows a 2cm pheochromocytoma- no growth as compared to previous studies. She had orthostatic hypotension with PT and OT today. I spoke with Dr. Moser today at [facility]'s. He is an internal medicine hospitalist. He was able to review records with regards to endocrinology visits at the over the last several years. He states that he feels her endocrine situation is stable her labs are okay and he is not inclined to think that this is an endocrine problem. He recommends compression therapy to include compression socks and abdominal binder when she gets up and to give her several more days and hopefully her orthostatic hypotension will resolve. He also gave me daytime resources for endocrinology consultation and invited me to call back in several days if Ms. Farias does not improve." 05/16/2024: No episodes of hypertension overnight. BP actually 97/57 this morning. She is not on antihypertensives at home. She feels better this morning, but does not feel safe going home with her blood pressure varying as it has. She refused her dose of Decadron today and said she was not interested in a steroid taper. If she worsens, I will reach out to her residential tech. She experienced orthostatic hypotension with PT/OT yesterday, they are continuing to follow-up. I believe that her orthostasis is likely exacerbated by dehydration/influenza. I am holding her here until her orthostasis improves. I am closely monitoring her blood pressure now that she is no longer on Decadron given her significant history of endocrine abnormalities. Per PT, she continued to have orthostatic hypotension today. I am ordering another 2 L LR She refuses facility placement, wants to discharge home when she is stable. (2) Respiratory failure with hypoxia: Impression: Resolved . She has passed an oxygen desaturation test. She is 100% with ambulation. She has responded well to treatment with steroids and IV antibiotics. I am adjusting steroids down as she has been on them since 05/09. (3) Influenza A: Impression: Acute hypoxic respiratory failure secondary to this influenza A infection she received Tamiflu as an outpatient. We are treating with anti-inflammatories Tylenol and Zofran as needed. (4) Community acquired pneumonia: Impression: Groundglass opacities on CT of the chest. Indicative of inflammation there is no dense consolidation. Her white blood cell count is within normal limits I am treating her for community-acquired pneumonia with azithromycin x 3 days and Rocephin x 5 days. She has completed azithromycin and she is day 4 of 5 Rocephin. 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 She has chronic dysphagia and drinks thickened liquids. She is currently tolerating her diet. (6) Seborrheic dermatitis: Impression: Ongoing and problematic for the patient. She states that her scalp is itchy and uncomfortable. She does indeed have scabbing and scaling in patches on her scalp. She has severe dandruff.She has been given ketoconazole shampoo in the outpatient environment. This is not working. I educated the patient regarding treatment of seborrheic dermatitis of the scalp. She will use [id number] T-Gel and T Randy shampoos mixed with her ketoconazole and I will prescribe her topical clobetasol solution for her scalp. She will follow-up with her lithopone charger.
[2024-05-16] MEDS: LACTATED RINGERS 1,000 ML IV SCH (18:07)
[2024-05-16] MEDS: CLOBETASOL 0.05% OINT 15 GM TUBE TOP SCH ×2 (18:37→21:07)
[2024-05-16] MEDS: BENZONATATE 100 MG CAPSULE PO PRN (23:56)
[2024-05-17 05:41] LABS: BASOPHILS % (AUTO) 0.1 %; EOSINOPHILS # (AUTO) 0.1 10^3/uL (0.0-0.7); EOSINOPHILS % (AUTO) 0.9 %; HCT - HEMATOCRIT 33.4 % (37.0-47.0); HGB - HEMOGLOBIN 10.5 g/dL (12.0-16.0); LYMPHOCYTES # (AUTO) 3.1 10^3/uL (1.5-3.5); LYMPHOCYTES % (AUTO) 26.2 %; MEAN CORPUSCULAR HEMOGLOBIN 29.7 pg (27.0-31.0); MEAN CORPUSCULAR HGB CONC 31.4 g/dL (32.0-36.0); MEAN CORPUSCULAR VOLUME 94.6 fL (81.0-99.0); MEAN PLATELET VOLUME 8.9 fL (7.9-10.8); MONOCYTES # (AUTO) 0.7 10^3/uL (0.0-1.0); MONOCYTES % (AUTO) 5.9 %; NEUTROPHILS # (AUTO) 7.9 10^3/uL (1.5-6.6); NEUTROPHILS % (AUTO) 66.1 %; PLT - PLATELET COUNT 486 10^3/uL (130-450); RED BLOOD COUNT 3.53 10^6/uL (4.20-5.40); RED CELL DISTRIBUTION WIDTH 14.6 % (12.0-15.0)
[2024-05-17 05:58] LABS: CALCIUM 8.6 mg/dL (8.5-10.3); CREATININE 0.5 mg/dL (0.6-1.3); POTASSIUM 4.1 mmol/L (3.5-4.5)
--- NOTE | 2024-05-17 13:38 | Discharge Summary ---
Discharge Summary Admit Date: 05/12/24 Discharge Date: 05/17/24 Discharging Provider: Juan Prescott NP Primary Care Provider: Paradise Kimbrough Code Status: Attempt Resuscitation DIAGNOSES Admission Diagnoses: Acute hypoxic respiratory failure Influenza A COPD Dysphagia Discharge Diagnoses with Status of Each Condition: Hypertensionstabilized off steroid Acute hypoxic respiratory failureresolved Influenza Aimproved CAPfinished course of antibiotics Dysphagiaimproved Dermatitis, seborrheicTopical agent ordered HPI History of Present Illness: Patient is a 68 year female with significant history of MEN 2a, throat cancer, thyroidectomy, punctured esophagus, neck reconstruction, colectomy that presents for shortness of breath. Patient reports malaise, lack of appetite, nausea, body aches, headaches, dysphagia, cough, shortness of breath with exertion for one week. Denies diarrhea, fever, chills, abdominal pain. She went to the ER last week and was prescribed prednisone and azithromycin with no improvement. Due to her medical history, she requires thickened liquids (consistency: mildly thin) , her dysphagia has been worse for the past week and she has been coughing up liquids. Patient denies smoking history, denies daily drinking, she lives with her boyfriend. Her PCP is Dr. An at [facility] Hospital Course: Patient was admitted into the hospital and placed on a Decadron course as well as ceftriaxone and azithromycin for CAP. She completed her course of antibiotics. Her BP was very labile, likely due to dehydration and also steroids in setting of her known endocrine disorder. Internal medicine with the [facility] was contacted, who reviewed her endocrine notes. They recommended weaning off steroids to see if there is an improvement. She stopped her steroid on 05/16/2024, and her blood pressure stabilized. She still has some bodyaches and fevers from her influenza. She is being discharged home to convalesce from her flu and isolation. She was evaluated by physical therapy, who recommended SNF versus home. She reported that she would prefer home with home health. This was ordered for her, and she independently reached out to [place] and would be for additional support. She has been instructed to follow- up with her PCP, as well as her finish specialist ALLERGIES Allergies Allergy/AdvReac Type Severity Reaction Status Date / Time iodine Allergy Hives Verified 05/12/24 14:41 tree nut Allergy Unknown Verified 05/12/24 14:41 MEDICATIONS Ambulatory Orders Medication Instructions Recorded Confirmed albuterol sulfate 90 mcg/actuation 1 inh inhalation QID 03/16/24 05/12/24 aerosol inhaler (Ventolin HFA) aspirin 81 mg tablet,delayed 81 mg PO QDAY 03/16/24 05/12/24 release (Adult Low Dose Aspirin) citalopram 40 mg tablet (Celexa) 20 mg PO QDAY 03/16/24 05/12/24 clonazepam 0.5 mg tablet (Klonopin) 0.5 mg PO QDAY 03/16/24 05/12/24 epinephrine 0.3 mg/0.3 mL 0.3 mg IM Q10M PRN anaphylaxis 03/16/24 05/12/24 injection, auto-injector (EpiPen 2-Rickie) latanoprost 0.005 % eye drops 1 drp ophthalmic (eye) QDAY 03/16/24 05/12/24 levothyroxine 75 mcg tablet 75 mcg PO QDAY 03/16/24 05/12/24 (Synthroid) timolol 0.5 % eye drops 1 drp ophthalmic (eye) QDAY 03/16/24 05/13/24 clobetasol 0.05 % scalp solution 1 applic topical BID 1 week #50 mL 05/13/24 hydrocodone 5 mg-acetaminophen 325 1 tab PO Q8H PRN pain 3 days #9 05/17/24 mg tablet tabs PHYSICAL EXAM AT DISCHARGE General Appearance: positive No acute distress and Alert Eyes Bilateral: positive Normal inspection ENT: positive ENT inspection nml Neck: positive Nml inspection Respiratory: positive Chest non-tender Cardiovascular: positive Regular rate & rhythm Peripheral Pulses: positive 2+ Abdomen: positive Non-tender Skin: positive Color nml Extremities: positive Non-tender Neurologic/Psychiatric: positive Oriented x3 LABS 05/17/24 05:23 05/17/24 05:23 SEPSIS Current Stage of Sepsis: Ruled out FOLLOW UP Follow Up: With PCP, endocrinology TIME SPENT Time Spent in Discharge (Minutes): 35 Discharge Plan Discharge Patient Disposition: 01 Home, Self Care Condition: Stable Medically Cleared Date:: 05/17/24 Prescriptions: New clobetasol 0.05 % solution 1 applic topical BID 7 Days Qty: 50 0RF Continued hydrocodone-acetaminophen 5-325 mg tablet 1 tab PO Q8H PRN (Reason: pain) 3 Days Qty: 9 0RF levothyroxine [Synthroid] 75 mcg tablet 75 mcg PO QDAY citalopram [Celexa] 40 mg tablet 20 mg PO QDAY clonazepam [Klonopin] 0.5 mg tablet 0.5 mg PO QDAY aspirin [Adult Low Dose Aspirin] 81 mg tablet,delayed release (DR/EC) 81 mg PO QDAY epinephrine [EpiPen 2-Rickie] 0.3 mg/0.3 mL auto-injector 0.3 mg IM Q10M PRN (Reason: anaphylaxis) Rx Instructions: for 2 doses latanoprost 0.005 % drops 1 drp ophthalmic (eye) QDAY timolol 0.5 % drops 1 drp ophthalmic (eye) QDAY albuterol sulfate [Ventolin HFA] 90 mcg/actuation HFA aerosol inhaler 1 inh inhalation QID Discontinued oseltamivir [Tamiflu] 75 mg capsule 75 mg PO BID 5 Days Qty: 10 0RF Activity Restrictions: Activity as Tolerated Diet: Regular Health Concerns: You are a 68-year-old female with a past medical history of asthma who got an influenza A infection. You were trying to do well at home and follow instructions following your emergency department visit but it seems that you got sicker and had to return to the emergency department. At that time we noted that your oxygen was low when you are walking. Your oxygen was fine at rest. You have finished a course of antibiotics for pneumonia and also received steroids with good effect. The steroids made your blood pressure volatile, this blood pressure has stabilized after stopping the dexamethasone. I am sending you home with a prescription for clobetasol twice a day. I would like for you to drink plenty of water I would like for you to follow-up with your PCP and with endocrinology. He will be set up with home health PT/OT and have already established herself with [facility] Print Language: Persian Patient Instructions: Viral Illness Resp Tx Ch Stand Alone Forms: PCP List
[2024-05-17] MEDS ORDERED: HYDROcod/ACET 5/325 Prepack 4 PO PRN (14:21)
[2024-05-17 16:39] VITALS: BP 120/53; TEMP 98.1; O2SAT 96
== END 2024-05-17 16:25 | disposition home or self-care (01) | DRG 189 ==
LOC: MS2 14:00 → ED 14:00 → MS2 18:17
PROVIDERS: ADMIT Physician Assistant Medical; ATTEND Physician Assistant Medical
DX: Z85.819 Personal history of malignant neoplasm of unspecified site of lip, oral cavity, and pharynx; J44.0 Chronic obstructive pulmonary disease with (acute) lower respiratory infection; Y92.230 Patient room in hospital as the place of occurrence of the external cause; I15.8 Other secondary hypertension; J10.00 Influenza due to other identified influenza virus with unspecified type of pneumonia; Z85.89 Personal history of malignant neoplasm of other organs and systems; E89.0 Postprocedural hypothyroidism; Z90.49 Acquired absence of other specified parts of digestive tract; J96.01 Acute respiratory failure with hypoxia; E86.0 Dehydration; L21.9 Seborrheic dermatitis, unspecified; T38.0X5A Adverse effect of glucocorticoids and synthetic analogues, initial encounter; J47.0 Bronchiectasis with acute lower respiratory infection; R13.10 Dysphagia, unspecified; I95.1 Orthostatic hypotension; D35.00 Benign neoplasm of unspecified adrenal gland